=== PATIENT | male | born 1960 | race Caucasian/White ===

== ENCOUNTER 2019-03-26 16:14 | Emergency (ER) | payer OTHER ==
[~2019-03-26] VITALS: Wt 54.9 kg
[2019-03-26] MEDS ORDERED: LORAZEPAM 2 MG INJ IV STA (22:04)
[2019-03-26] MEDS ORDERED: SOD CHLORIDE 0.9% 1,000 ML IV STA (22:04)
[2019-03-27 00:23] VITALS: BP 116/68; PULSE 85; RESP 16
--- NOTE | 2019-03-27 00:28 | ERD ---
ER Documentation Chief Complaint Chief Complaint ETOH X7 DAYS, DIZZY, N/V HPI 59-year-old male with a history of depression brought in by his friend due to alcohol intoxication. Patient states that he has been drinking alcohol nonstop for the past several weeks. Prior to this, he has no history of alcoholism. 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 He is complaining of depression and states he is drinking because of that. However he denies any suicidal thoughts/ideations. Currently he has no physical complaints. His friend is concerned that he is dehydrated and malnourished as he has not been eating much. ROS All systems reviewed and are negative except as per history of present illness. PMhx/Soc History of Surgery: Yes (lung sx,head sx, heart sx) Anesthesia Reaction: No Hx Neurological Disorder: No Hx Respiratory Disorders: No Hx Cardiac Disorders: No Hx Psychiatric Problems: Yes (ETOH abuse,substance abuse) Hx Miscellaneous Medical Probl: No Hx Alcohol Use: Yes (daily,last used 03/25/2019) Hx Substance Use: Yes (cocaine & heroine quit 2003) Hx Tobacco Use: Yes (daily) Smoking Status: Current every day smoker FmHx Family History: No diabetes Physical Exam Vitals Vital Signs Date Temp Pulse Resp B/P (MAP) Pulse Ox O2 O2 Flow FiO2 Time Delivery Rate 03/26/19 94 16 114/87 93 Room Air 23:30 (96) 03/26/19 96 16 108/82 94 Room Air 23:00 (91) 03/26/19 97 16 114/85 97 Room Air 22:33 (95) 03/26/19 98.9 115 20 144/81 96 17:21 (102) Physical Exam Const: No acute distress, thin body habitus Head: Atraumatic Eyes: Normal Conjunctiva, PERRLA, EOMI ENT: Normal External Ears, Nose and Mouth.dry mucous membranes. Neck: Full range of motion. No meningismus. Resp: Clear to auscultation bilaterally Cardio: Regular rate and rhythm, no murmurs Abd: Soft, non tender, non distended. Normal bowel sounds Skin: No petechiae or rashes Back: No midline or flank tenderness Ext: No cyanosis, or edema Neur: Awake and alert, Oriented x3, cranial nerves intact, strength and sensations intact in all 4 extremities Psych: Depressed mood and normal affect. No SI or HI. No hallucinations. No tremors. Result Diagram: 03/26/19222503/26/192225 Results 24 hrs Laboratory Tests Test 03/26/19 22:26 White Blood Count 13.4 10^3/ul Red Blood Count 4.26 10^6/ul Hemoglobin 13.7 g/dl Hematocrit 38.7 % Mean Corpuscular Volume 90.8 fl Mean Corpuscular Hemoglobin 32.2 pg Mean Corpuscular Hemoglobin Concent 35.4 g/dl Red Cell Distribution Width 13.1 % Platelet Count 234 10^3/UL Mean Platelet Volume 8.6 fl Immature Granulocytes % 0.400 % Neutrophils % 79.7 % Lymphocytes % 10.1 % Monocytes % 9.3 % Eosinophils % 0.1 % Basophils % 0.4 % Nucleated Red Blood Cells % 0.0 /100WBC Immature Granulocytes # 0.060 10^3/ul Neutrophils # 10.7 10^3/ul Lymphocytes # 1.4 10^3/ul Monocytes # 1.2 10^3/ul Eosinophils # 0.0 10^3/ul Basophils # 0.1 10^3/ul Nucleated Red Blood Cells # 0.0 10^3/ul Sodium Level 139 mmol/L Potassium Level 4.3 mmol/L Chloride Level 101 mmol/L Carbon Dioxide Level 25 mmol/L Anion Gap 13 Blood Urea Nitrogen 5 mg/dl Creatinine 1.06 mg/dl Est Glomerular Filtrat Rate mL/min > 60 mL/min Glucose Level 83 mg/dl Calcium Level 8.8 mg/dl Total Bilirubin 0.4 mg/dl Direct Bilirubin 0.00 mg/dl Indirect Bilirubin 0.4 mg/dl Aspartate Amino Transf (AST/SGOT) 74 IU/L Alanine Aminotransferase (ALT/SGPT) 48 IU/L Alkaline Phosphatase 60 IU/L Total Protein 7.8 g/dl Albumin 4.3 g/dl Globulin 3.50 g/dl Albumin/Globulin Ratio 1.22 Current Medications Medications Dose Sig/[place] Start Time Status Last (Trade) Ordered Route PRN Stop Time Admin Dose Reason Admin Sodium 1,000 ml @ Q1H STAT 03/26/19 DC 03/26/19 Chloride 1,000 mls/hr IV 22:04 03/26/19 22:31 23:03 Lorazepam 1 mg ONCE STAT 03/26/19 DC 03/26/19 (Ativan) IV 22:04 03/26/19 22:31 22:05 Procedures/MDM EMERGENT LABS AND DIAGNOSTIC STUDIES: Lab Results above were reviewed and interpreted by me. CBC: Mild leukocytosis, doubt infection CMP: Slight elevation of AST. No evidence of clinically significant electrolyte abnormality, acidosis, renal failure, hypoglycemia, liver disease, or biliary obstruction Initial Nursing notes reviewed. Previous Medical Records requested via the Electronic Health Record. EMERGENCY DEPARTMENT COURSE / MEDICAL DECISION MAKING: Patient is presenting with alcohol abuse problem. He has no signs of withdrawal at this time. He does want to quit drinking alcohol. he did seem slightly dehydrated on exam, so IV fluids were given and basic labs were done. Labs did not show any significant abnormalities. He was treated with Ativan here as he has not had alcohol for several hours and I was concerned about him withdrawing. I have offered the patient resources for outpatient detox, however he states that he can stop himself and does not want these resources. However he did agree to receiving resources for outpatient mental health. I feel the patient is stable for discharge with no apparent medical emergency at this time. Return precautions were discussed with him and his friend at bedside. Patient's blood pressure was elevated (>120/80) but appears stable without evidence of hypertensive emergency or urgency. The patient was counseled about the risks of hypertension and urged to pursue outpatient monitoring and therapy within a week with their primary care physician. Departure Diagnosis: Primary Impression: Alcohol abuse, daily use Additional Impression: Depressed Depression Type: unspecified Qualified Codes: F32.9 - Major depressive disorder, single episode, unspecified Condition: Stable Patient Instructions: Alcoholism: Getting Help, Depression Referrals: COMM[facility]ITY CLINICS YOU HAVE RECEIVED A MEDICAL SCREENING EXAM AND THE RESULTS INDICATE THAT YOU DO NOT HAVE A CONDITION THAT REQUIRES URGENT TREATMENT IN THE EMERGENCY DEPARTMENT. FURTHER EVALUATION AND TREATMENT OF YOUR CONDITION CAN WAIT UNTIL YOU ARE SEEN IN YOUR DOCTORS OFFICE WITHIN THE NEXT 1-2 DAYS. IT IS YOUR RESPONSIBILITY TO MAKE AN APPOINTMENT FOR FOLOW-UP CARE. IF YOU HAVE A PRIMARY DOCTOR --you should call your primary doctor and schedule an appointment IF YOU DO NOT HAVE A PRIMARY DOCTOR YOU CAN CALL OUR PHYSICIAN REFERRAL HOTLINE AT IF YOU CAN NOT AFFORD TO SEE A PHYSICIAN YOU CAN CHOSE FROM THE FOLLOWING COM [facility] [address] [facility] [address] [facility] [address] [facility] [address] [facility] [address] [facility] [facility] [address] Additional Instructions: Follow-up with your primary care doctor as soon as possible. If you have any worsening symptoms, return to the ER. You have been provided with a list of mental health facilities that can help with your depression. PIEDAD CHAVES MD Mar 27, 2019 00:28
== END 2019-03-27 00:26 | disposition home or self-care (01) ==
LOC: E/R 16:14
DX: F10.10 Alcohol abuse, uncomplicated (principal); F17.210 Nicotine dependence, cigarettes, uncomplicated; F32.9 Major depressive disorder, single episode, unspecified; R40.2142 Coma scale, eyes open, spontaneous, at arrival to emergency department; R40.2362 Coma scale, best motor response, obeys commands, at arrival to emergency department; R40.2252 Coma scale, best verbal response, oriented, at arrival to emergency department
CPT/HCPCS: 36415; 80053; 85025; 96374; J2060; J7030; Z7502

== ENCOUNTER 2019-03-28 22:04 | Inpatient (IN) | payer OTHER ==
[~2019-03-28] VITALS: Ht 177.8 cm; Wt 55.8 kg
--- NOTE | 2019-03-29 01:22 | ERD ---
ER Documentation Chief Complaint Chief Complaint BIB RA for ETOH on sidewalk HPI This is a 59-year-old male with a past medical history of depression, anxiety, chronic alcohol abuse, distant illicit drug abuse is now presenting for reported depression and a desire for help. The patient reports difficulty sleeping. He has a poor appetite and never feels hungry. He endorses low interest in things, but he does report that he is able to focus and concentrate when needed. He does not endorse any active guilty feelings. He does not endorse any psychomotor agitation or depression. He does not endorse auditory or visual hallucinations. He does not endorse suicidal or homicidal ideations. The patient is homeless. The patient reports that due to his depression, he tends to drink. The patient admits to alcohol intoxication this evening. The patient denies feeling sick recently. The patient denies fever or chills. The patient has had no headache or vision changes. The patient does not endorse neck or back pain. The patient denies lightheadedness or dizziness. The patient has had no chest pain or trouble breathing. The patient denies nausea or vomiting. The patient denies abdominal pain. The patient denies changes to bowel movements or urination. The patient has had no focal deficits. The patient has had no weakness or numbness or tingling to the face or extremities. ROS All systems reviewed and are negative except as per history of present illness. Allergies Allergies: Coded Allergies: No Known Drug Allergies (Verified Allergy, Unknown, 03/27/19) PMhx/Soc History of Surgery: Yes (lung sx,head sx, heart sx) Anesthesia Reaction: No Hx Neurological Disorder: No Hx Respiratory Disorders: No Hx Cardiac Disorders: No Hx Psychiatric Problems: Yes (Depression, anxiety) Hx Miscellaneous Medical Probl: No Hx Alcohol Use: Yes (daily,last used 03/25/2019) Hx Substance Use: Yes (cocaine & heroine quit 2003) Hx Tobacco Use: Yes (daily) Smoking Status: Current every day smoker FmHx Family History: No diabetes Physical Exam Vitals Vital Signs Date Temp Pulse Resp B/P (MAP) Pulse Ox O2 O2 Flow FiO2 Time Delivery Rate 03/28/19 101 30 133/93 95 Room Air 23:13 (106) 03/28/19 97.9 114 18 119/78 96 22:11 (92) Physical Exam Const: No acute distress Head: Atraumatic Eyes: Normal Conjunctiva ENT: Normal External Ears, Nose. Dry mucous membranes. Neck: Full range of motion. No meningismus. Resp: Clear to auscultation bilaterally Cardio: Regular rhythm, tachycardia, no murmurs Abd: Soft, non tender, non distended. Normal bowel sounds Skin: No petechiae or rashes Back: No midline or flank tenderness Ext: No cyanosis, or edema Neur: Awake and alert Psych: Depressed affect. No SI or HI. No AH or VH. Result Diagram: 03/28/194 03/28/194 Results 24 hrs Laboratory Tests Test 03/28/19 23:34 White Blood Count 15.0 10^3/ul Red Blood Count 4.05 10^6/ul Hemoglobin 13.0 g/dl Hematocrit 36.9 % Mean Corpuscular Volume 91.1 fl Mean Corpuscular Hemoglobin 32.1 pg Mean Corpuscular Hemoglobin Concent 35.2 g/dl Red Cell Distribution Width 12.8 % Platelet Count 197 10^3/UL Mean Platelet Volume 8.6 fl Immature Granulocytes % 0.500 % Neutrophils % 86.2 % Lymphocytes % 6.7 % Monocytes % 5.5 % Eosinophils % 0.1 % Basophils % 1.0 % Nucleated Red Blood Cells % 0.0 /100WBC Immature Granulocytes # 0.070 10^3/ul Neutrophils # 12.9 10^3/ul Lymphocytes # 1.0 10^3/ul Monocytes # 0.8 10^3/ul Eosinophils # 0.0 10^3/ul Basophils # 0.2 10^3/ul Nucleated Red Blood Cells # 0.0 10^3/ul Sodium Level 139 mmol/L Potassium Level 3.6 mmol/L Chloride Level 103 mmol/L Carbon Dioxide Level 22 mmol/L Anion Gap 14 Blood Urea Nitrogen 7 mg/dl Creatinine 0.93 mg/dl Est Glomerular Filtrat Rate mL/min > 60 mL/min Glucose Level 109 mg/dl Calcium Level 8.3 mg/dl Total Bilirubin 0.9 mg/dl Direct Bilirubin 0.00 mg/dl Indirect Bilirubin 0.9 mg/dl Aspartate Amino Transf (AST/SGOT) 205 IU/L Alanine Aminotransferase (ALT/SGPT) 71 IU/L Alkaline Phosphatase 58 IU/L Total Protein 7.6 g/dl Albumin 4.4 g/dl Globulin 3.20 g/dl Albumin/Globulin Ratio 1.37 Salicylates Level < 1.0 mg/dl Acetaminophen Level < 10.0 ug/ml Ethyl Alcohol Level 400.0 mg/dl Procedures/MDM MDM The patient's presentation warrants further investigation. Previous medical records, if available, were reviewed. LABS The patient's laboratory testing was obtained and reviewed. No emergent treatment was required unless described below. CBC: Leukocytosis, which I suspect to be reactive. Normocytic anemia, not emergent. Normal platelet count. Chemistry: No E/o severe acidosis or alkalosis or renal failure or diabetic ketoacidosis. Transaminitis in a pattern consistent with alcohol abuse. Tox: E/o alcohol abuse. No E/o salicylate or acetaminophen use. TREATMENT/DISPOSITION The patient's workup included a medical screening examination, laboratory analysis, and diagnostic imaging such as EKG, chest x-ray or CT brain as indicated. The patient's laboratory analysis, diagnostic imaging do not suggest an acute organic pathology. At this time I believe the patient's presentation is consistent with underlying psychiatric illness and likely exacerbation of this illness and/or psychosis. I have a much lower clinical concern for delirium or acute organic pathology such as toxicologic, metabolic, ischemic, intracranial hemorrhage, infectious process. However, we must rule this out prior to relying a diagnosis of underlying psychiatric illness. The patient is medically cleared for psychiatric evaluation. I kept the patient and/or family informed of laboratory and diagnostic imaging results throughout the emergency room course. The patient did not require any physical or chemical restraint while under my care. Psychiatric consultation: Telemetry medicine psychiatry has been consulted on to evaluate the patient for possible acute psychiatric illness that would require inpatient hospitalization. The patient is currently pending this evaluation. We spoke to the psychiatrist who would like to assess the patient once he is clinically sober. The patient's alcohol level is currently 400. The patient will be signed out to the oncoming physician at 6 AM on March 29, 2019. OBSERVATION NOTE Time: 4 hours Family Hx: No Diabetes Evaluation: Multiple exams showed improving symptoms and no evidence of worsening psychosis Disclaimer: Inadvertent spelling and grammatical errors are likely due to EHR/dictation software use and do not reflect on the overall quality of patient care. Note that the electronic time recorded on this note does not necessarily reflect the actual time of the patient encounter. Departure Diagnosis: Primary Impression: Depression Depression Type: unspecified Qualified Codes: F32.9 - Major depressive disorder, single episode, unspecified Additional Impressions: Alcohol intoxication Complication of substance-induced condition: uncomplicated Qualified Codes: F10.920 - Alcohol use, unspecified with intoxication, uncomplicated Leukocytosis Leukocytosis type: unspecified Qualified Codes: D72.829 - Elevated white blood cell count, unspecified Normocytic anemia Transaminitis Condition: ISIDRO Barrera MD Mar 29, 2019 01:22
--- NOTE | 2019-03-29 02:13 | PSY ---
Date/Time of Note Date/Time of Note DATE: 03/29/19 TIME: 02:10 Psychiatric Subjective Eval Subjective Evaluation Patient location: emergency Chief Complaint: BIB RA for ETOH on sidewalk History of present illness Chart reviewed. Patient presented for alcohol intoxication and also noted he was depressed. No suicidal or violent thoughts were reported. Alcohol level noted to be markedly elevated. Psychiatry consultation should not be requested until alcohol has completely metabolized. Consult can be re-initiated at that time if condition warrants. Medical history Problems Medical Problems: (1) Alcohol abuse, daily use Status: Acute (2) Alcohol abuse, daily use Status: Acute (3) Alcohol intoxication Status: Acute (4) Depressed Status: Acute (5) Depressed Status: Acute (6) Depression Status: Acute (7) Leukocytosis Status: Acute (8) Normocytic anemia Status: Acute (9) Transaminitis Status: Acute Allergies: Coded Allergies: No Known Drug Allergies (Verified Allergy, Unknown, 03/27/19) Social History Marital status: single Psychiatric Objective Eval Mental Status Examination: Laboratory Results Laboratory Tests Test 03/28/19 23:34 White Blood Count 15.0 10^3/ul Red Blood Count 4.05 10^6/ul Hemoglobin 13.0 g/dl Hematocrit 36.9 % Mean Corpuscular Volume 91.1 fl Mean Corpuscular Hemoglobin 32.1 pg Mean Corpuscular Hemoglobin Concent 35.2 g/dl Red Cell Distribution Width 12.8 % Platelet Count 197 10^3/UL Mean Platelet Volume 8.6 fl Immature Granulocytes % 0.500 % Neutrophils % 86.2 % Lymphocytes % 6.7 % Monocytes % 5.5 % Eosinophils % 0.1 % Basophils % 1.0 % Nucleated Red Blood Cells % 0.0 /100WBC Immature Granulocytes # 0.070 10^3/ul Neutrophils # 12.9 10^3/ul Lymphocytes # 1.0 10^3/ul Monocytes # 0.8 10^3/ul Eosinophils # 0.0 10^3/ul Basophils # 0.2 10^3/ul Nucleated Red Blood Cells # 0.0 10^3/ul Sodium Level 139 mmol/L Potassium Level 3.6 mmol/L Chloride Level 103 mmol/L Carbon Dioxide Level 22 mmol/L Anion Gap 14 Blood Urea Nitrogen 7 mg/dl Creatinine 0.93 mg/dl Est Glomerular Filtrat Rate mL/min > 60 mL/min Glucose Level 109 mg/dl Calcium Level 8.3 mg/dl Total Bilirubin 0.9 mg/dl Direct Bilirubin 0.00 mg/dl Indirect Bilirubin 0.9 mg/dl Aspartate Amino Transf (AST/SGOT) 205 IU/L Alanine Aminotransferase (ALT/SGPT) 71 IU/L Alkaline Phosphatase 58 IU/L Total Protein 7.6 g/dl Albumin 4.4 g/dl Globulin 3.20 g/dl Albumin/Globulin Ratio 1.37 Salicylates Level < 1.0 mg/dl Acetaminophen Level < 10.0 ug/ml Ethyl Alcohol Level 400.0 mg/dl Assessment and Plan Assessment/Diagnosis Diagnosis Alcohol Intoxication Recommendation/Plan Discharge Disposition: Other (Other) Legal Status: Voluntary Other Alcohol needs to be completely metabolized. Consult can be requested again if condition warrants (eg indication of possible dangerousness to self or others). TOBI WOLFF MD Mar 29, 2019 02:13
[2019-03-29] MEDS ORDERED: CHLORDIAZEPOXIDE 25 MG CAP PO ONE (12:00)
[2019-03-29] MEDS ORDERED: DIAZEPAM 5 MG/ML SYG IV ONE ×2 (15:00→18:00)
[2019-03-29] MEDS ORDERED: FOLIC ACID 1 MG TAB PO ONE (15:00)
[2019-03-29] MEDS ORDERED: DEXTROSE 5%-0.45% NACL 500 ML BAG IV ONE (15:00)
[2019-03-29] MEDS ORDERED: THIAMINE 100 MG TAB PO ONE (15:00)
[2019-03-29] MEDS ORDERED: LACTATED RINGER'S 1,000 ML IV ONE (16:00)
[2019-03-29] MEDS ORDERED: MULTIVITAMINS 10 ML, THIAMINE 100 MG, FOLIC ACID 1 MG, MAGNESIUM SULFATE 2 GM in SOD CH... IV ONE (18:00)
[2019-03-29] MEDS ORDERED: ONDANSETRON 4 MG INJ IV PRN (18:30)
[2019-03-29] MEDS ORDERED: ACETAMINOPHEN 325 MG TAB PO PRN (18:30)
--- NOTE | 2019-03-29 23:51 | HP ---
Date/Time of Note Date/Time of Note DATE: 03/29/19 TIME: 23:51 Assessment/Plan VTE Prophylaxis Pharmacological prophylaxis: heparin Lines/Catheters IV Catheter Type (from Nrs): Saline Lock Assessment/Plan Assessment/Plan 1. Alcohol intoxication/withdrawal -IV fluid alternating with banana bag -Librium. As needed Ativan -Counseled about abstinence from alcohol -Start diet 2. SIRS vs sepsis from sacral ulcer and ulceration on the dorsum of feet -Empiric antibiotic -Wound care consult 3. Depression -Patient was seen in the ER by tele-psychiatry for depression, however currently is not endorsing any depressive symptoms and also denying suicidal or homicidal ideation -Treat alcohol intoxication/withdrawal for now Result Diagram: 03/28/19 2334 03/28/19 2334 Results 24hrs Laboratory Tests Test 03/29/19 05:56 03/29/19 10:51 Ethyl Alcohol Level 239.0 H 143.0 H HPI/ROS Admit Date/Time Admit Date/Time Hx of Present Illness This is a 59-year-old male with a history of alcohol abuse, and reported heart and lung surgery who presented to ER with alcohol intoxication and asking for help. His last drink was yesterday and prior to that was 3 weeks ago. He said he does not drink all the time, but he does, he drinks excessively. He has some lesion on his forehead and he does not know how he got that. He also reported that he was walking barefoot 4 days ago and as a result he said he burned his feet because the street that he was walking on was too hot. When he presented to the ER, he is found to have significantly elevated blood alcohol level. WBC 15,000. Patient was evaluated by telemetry psychiatry for feeling depressed. PMH/Family/Social Past Medical History Past Surgical Hx: other Family History Significant Family History: no pertinent family hx Social History Alcohol Use: none Smoking Status: Never smoker Drug Use: none Exam Constitutional: other (No acute distress) Head: normocephalic, atraumatic Eyes: EOMI, PERRL Respiratory: clear to auscultation, normal air movement Cardiovascular: regular rate and rhythm Gastrointestinal: soft Extremities: normal pulses Medications Current Medications Ondansetron HCl (Zofran Inj) 4 mg ER BRIDGE PRN IV NAUSEA/VOMITING; Start 03/29/19 at 18:30; Stop 03/30/19 at 18:29 Acetaminophen (Tylenol Tab) 650 mg ER BRIDGE PRN PO .MILD PAIN 1-3 OR TEMP; Start 03/29/19 at 18:30; Stop 03/30/19 at 18:29 Coded Allergies: No Known Drug Allergies (Verified Allergy, Unknown, 03/27/19) Social History Smoking Status: Current every day smoker Exam/Review of Systems Vital Signs Vitals Vital Signs Date Temp Pulse Resp B/P (MAP) Pulse Ox O2 O2 Flow FiO2 Time Delivery Rate 03/29/19 84 16 125/77 97 Room Air 19:30 (93) 03/28/19 97.9 22:11 NADRESSA BALL MD Mar 29, 2019 23:51
[2019-03-30] MEDS: SOD CHLORIDE 0.9% 1,000 ML IV SCH ×3 (00:07→21:49)
[2019-03-30] MEDS ORDERED: ACETAMINOPHEN 325 MG TAB PO PRN (00:30)
[2019-03-30] MEDS ORDERED: NACL 0.9% 3 ML SYG IV SCH (00:30)
[2019-03-30] MEDS ORDERED: ALBUTEROL/IPRATROPIUM (NEB) 3 ML AMP HHN PRN (00:30)
[2019-03-30] MEDS ORDERED: ONDANSETRON 4 MG INJ IV PRN (00:30)
[2019-03-30 05:20] VITALS: Ht 177.8 cm; Wt 55.8 kg
[2019-03-30 06:59] VITALS: BP 141/72; PULSE 67; RESP 20
[2019-03-30] MEDS ORDERED: CHLORDIAZEPOXIDE 25 MG CAP PO SCH (08:30)
[2019-03-30] MEDS: FAMOTIDINE 20 MG INJ IV SCH ×2 (09:00→21:01)
[2019-03-30] MEDS ORDERED: MULTIVITAMINS 10 ML, THIAMINE 100 MG, FOLIC ACID 1 MG in SOD CHLORIDE 0.9% 1,000 ML IVPB SCH (09:00)
[2019-03-30] MEDS ORDERED: TRIMETHOPRIM/SULFAMETHOX (DS) TAB PO SCH (09:30)
[2019-03-30 11:13] VITALS: BP 132/79; PULSE 69; RESP 20
[2019-03-30] MEDS ORDERED: LORAZEPAM 2 MG INJ IV PRN (12:30)
[2019-03-30] MEDS ORDERED: LIDOCAINE 1% (MPF) 5 ML VIAL SC ONE (13:00)
--- NOTE | 2019-03-30 13:11 | PN ---
Date/Time of Note Date/Time of Note DATE: 03/30/19 TIME: 13:11 Objective Vitals Vital Signs Date Temp Pulse Resp B/P (MAP) Pulse Ox O2 O2 Flow FiO2 Time Delivery Rate 03/30/19 98.3 69 20 132/79 100 Room Air 11:13 (96) Results Result Diagram: 03/28/19 2334 03/28/19 2334 Medications Medications Current Medications Sodium Chloride 1,000 ml @ 100 mls/hr Q10H IV Last administered on 03/30/19at 00:07; Admin Dose 100 MLS/HR; Start 03/30/19 at 00:07 IV Flush (NS 3 ml) 3 ml PER PROTOCOL IV ; Start 03/30/19 at 00:30 Ondansetron HCl (Zofran Inj) 4 mg Q6H PRN IV NAUSEA/VOMITING; Start 03/30/19 at 00:30 Acetaminophen (Tylenol Tab) 650 mg Q6H PRN PO .PAIN 1-3 OR TEMP; Start 03/30/19 at 00:30 Famotidine (Pepcid Iv) 20 mg Q12 IV ; Start 03/30/19 at 09:00 Albuterol/ Ipratropium (Duoneb) 3 ml Q2H RESP THERAPY PRN HHN SHORTNESS OF BREATH; Start 03/30/19 at 00:30 Multivitamins 10 ml/Thiamine HCl 100 mg/Folic Acid 1 mg/Sodium Chloride 1,011.2 ml @ 125 mls/ hr DAILY@09 IVPB ; Start 03/31/19 at 09:00 Lorazepam (Ativan) 2 mg Q10MIN PRN IV seizures; Start 03/30/19 at 12:30 Lorazepam (Ativan) 1 mg Q6H PRN IV agitation/anxiety; Start 03/30/19 at 12:30 Chlordiazepoxide (Librium) 50 mg TID PO ; Start 03/30/19 at 13:00 Cefepime HCl 50 ml @ 100 mls/hr Q12 IVPB ; Start 03/30/19 at 13:15 VTE Prophylaxis Risk score (from Ns)>0 risk: 3 SCD applied (from Ns): Yes Lines/Catheters IV Catheter Type: Fernandez in Place: No Assessment/Plan Hospital Course Subjective Patient doing well, still feeling very mild anxiety however states he feels much better than when in the ER Objective Physical exam General: Patient is laying in bed and answers questions appropriately Mentation: Patient is alert and oriented 4, Head: Normocephalic atraumatic Eyes: EOMI, pupils reactive to light Neck: Supple, nontender, midline Respiratory: Clear to auscultation bilaterally Cardiovascular: regular rate, no obvious murmurs Gastrointestinal: non-tender to palpation, bowel sounds heard. Neurological: Moves all extremities spontaneously Skin: No new skin lesions Assessment and plan Acute alcohol intoxication and withdrawal -IV fluids with banana bag -Patient feeling much better than yesterday -Librium, taper down as tolerated -As needed Ativan -Counseled about abstinence from alcohol -Regular diet -We will get PICC line as patient does not have good IV access, midline unable to be placed, patient at risk of withdrawal and will need IV access for IV Ativan as well as IV antibiotic. Patient does have a history of heroin use in the remote past 20 years ago so cannot be discharged with PICC line under any circumstance Sepsis -Possible secondary to ulcerations of feet -IV antibiotic -Blood cultures Bilateral foot ulcers -Patient states that he may have burned his feet without shoes while walking in the sun -IV antibiotic -Wound care consultation pending Depression -Seen by tele-psych and ER, no suicidal homicidal ideation per record -Continue treating for alcohol intoxication Disposition -Continue IV antibiotic, continue inpatient stay for alcohol withdrawal. NIESHA SHERWOOD Mar 30, 2019 13:11
[2019-03-30] MEDS ORDERED: CEFEPIME 2GM/50 ML (PMX) 50 ML IVPB SCH (13:15)
[2019-03-30] MEDS: CHLORDIAZEPOXIDE 25 MG CAP PO SCH ×2 (14:36→21:00)
[2019-03-30 15:16] VITALS: BP 124/75; PULSE 68; RESP 20
[2019-03-30] MEDS: CEPHALEXIN 500 MG CAP PO SCH (18:44)
[2019-03-30 19:29] VITALS: BP 120/73; PULSE 80; RESP 18
[2019-03-30] MEDS: DOXYCYCLINE 100 MG TAB PO SCH (21:00)
[2019-03-31] VITALS (7 sets, daily range): BP systolic 118–147; BP diastolic 69–87; PULSE 65–80; RESP 16–20
[2019-03-31] MEDS: CEPHALEXIN 500 MG CAP PO SCH ×4 (05:10→17:41)
[2019-03-31] MEDS: SOD CHLORIDE 0.9% 1,000 ML IV SCH ×2 (05:12→16:07)
[2019-03-31] MEDS: FAMOTIDINE 20 MG INJ IV SCH ×2 (08:32→20:21)
[2019-03-31] MEDS: CHLORDIAZEPOXIDE 25 MG CAP PO SCH ×3 (08:32→20:02)
[2019-03-31] MEDS: DOXYCYCLINE 100 MG TAB PO SCH ×2 (08:32→20:02)
[2019-03-31] MEDS: MULTIVITAMINS 10 ML, THIAMINE 100 MG, FOLIC ACID 1 MG in SOD CHLORIDE 0.9% 1,000 ML IVPB SCH (08:32)
[2019-03-31] MEDS ORDERED: MAGNESIUM OXIDE 400 MG TAB PO ONE (09:00)
[2019-03-31] MEDS ORDERED: PROPOFOL 40 ML ONE (12:33)
--- NOTE | 2019-03-31 16:58 | PN ---
Date/Time of Note Date/Time of Note DATE: 03/31/19 TIME: 16:51 Assessment/Plan VTE Prophylaxis Risk score (from Ns)>0 risk: 3 SCD applied (from Ns): Yes Pharmacological prophylaxis: other Lines/Catheters IV Catheter Type (from Nrsg): Saline Lock Urinary Cath still in place: No Assessment/Plan Assessment/Plan 1. Acute alcohol intoxication and withdrawal - Patient states hes feeling okay and denies any withdrawal sx - continue librium taper and IVF - Counseled about abstinence from alcohol 2. Sepsis - Possible secondary to ulcerations of feet - IV antibiotic - Blood cultures - WBC normalized and remains afebrile 3. Bilateral foot ulcers - awaiting wound care consultation - Patient states that he may have burned his feet without shoes while walking in the sun - IV antibiotic 4. Depression - Seen by tele-psych and ER, no suicidal homicidal ideation per record 5. Disposition - continue Librium taper and awaiting wound care consultation for LE ulcers Result Diagram: 03/31/19 0639 03/31/19 0639 Results 24hrs Laboratory Tests Test 03/31/19 06:39 White Blood Count 6.9 # Red Blood Count 3.62 L Hemoglobin 11.5 L Hematocrit 33.6 L Mean Corpuscular Volume 92.8 Mean Corpuscular Hemoglobin 31.8 Mean Corpuscular Hemoglobin Concent 34.2 Red Cell Distribution Width 12.5 Platelet Count 136 #L Mean Platelet Volume 10.2 Immature Granulocytes % 0.600 H Neutrophils % 66.3 Lymphocytes % 15.3 Monocytes % 12.2 H Eosinophils % 5.2 Basophils % 0.4 Nucleated Red Blood Cells % 0.0 Immature Granulocytes # 0.040 H Neutrophils # 4.6 Lymphocytes # 1.1 Monocytes # 0.9 Eosinophils # 0.4 Basophils # 0.0 Nucleated Red Blood Cells # 0.0 Sodium Level 134 L Potassium Level 4.3 Chloride Level 101 Carbon Dioxide Level 25 Anion Gap 8 Blood Urea Nitrogen 16 Creatinine 0.74 Est Glomerular Filtrat Rate mL/min > 60 Glucose Level 95 Calcium Level 8.4 Magnesium Level 1.6 L Total Bilirubin 0.9 Direct Bilirubin 0.00 Indirect Bilirubin 0.9 Aspartate Amino Transf (AST/SGOT) 96 H Alanine Aminotransferase (ALT/SGPT) 62 Alkaline Phosphatase 68 Total Protein 6.1 Albumin 3.2 L Globulin 2.90 Albumin/Globulin Ratio 1.10 Subjective 24 Hr Interval Summary Free Text/Dictation Patient doing well and states feeling less shaky. Pain in LE stable as long as he doesn't move. No acute overnight events. Exam/Review of Systems Exam Vitals Vital Signs Date Temp Pulse Resp B/P (MAP) Pulse Ox O2 O2 Flow FiO2 Time Delivery Rate 03/31/19 98.0 70 18 120/87 98 16:13 (98) 03/31/19 Room Air 04:27 Intake and Output 03/30/19 03/30/19 03/31/19 1515:00 23:00 07:00 IntakeIntake Total 600 ml 650 ml OutputOutput Total 200 ml 200 ml 1150 ml BalanceBalance 400 ml -200 ml -500 ml Exam General: Patient is laying in bed and answers questions appropriately Mentation: Patient is alert and oriented 4, Neck: Supple Respiratory: Clear to auscultation bilaterally. no wheezing or rhonchi Cardiovascular: regular rate and rhythm, no obvious murmurs Gastrointestinal: soft, non-tender to palpation, bowel sounds heard. Ext: moving all extremities. no edema, cyanosis, or clubbing Skin: dressing on LE b/l clean, dry Results Results 24hrs Laboratory Tests Test 03/31/19 06:39 White Blood Count 6.9 # Red Blood Count 3.62 L Hemoglobin 11.5 L Hematocrit 33.6 L Mean Corpuscular Volume 92.8 Mean Corpuscular Hemoglobin 31.8 Mean Corpuscular Hemoglobin Concent 34.2 Red Cell Distribution Width 12.5 Platelet Count 136 #L Mean Platelet Volume 10.2 Immature Granulocytes % 0.600 H Neutrophils % 66.3 Lymphocytes % 15.3 Monocytes % 12.2 H Eosinophils % 5.2 Basophils % 0.4 Nucleated Red Blood Cells % 0.0 Immature Granulocytes # 0.040 H Neutrophils # 4.6 Lymphocytes # 1.1 Monocytes # 0.9 Eosinophils # 0.4 Basophils # 0.0 Nucleated Red Blood Cells # 0.0 Sodium Level 134 L Potassium Level 4.3 Chloride Level 101 Carbon Dioxide Level 25 Anion Gap 8 Blood Urea Nitrogen 16 Creatinine 0.74 Est Glomerular Filtrat Rate mL/min > 60 Glucose Level 95 Calcium Level 8.4 Magnesium Level 1.6 L Total Bilirubin 0.9 Direct Bilirubin 0.00 Indirect Bilirubin 0.9 Aspartate Amino Transf (AST/SGOT) 96 H Alanine Aminotransferase (ALT/SGPT) 62 Alkaline Phosphatase 68 Total Protein 6.1 Albumin 3.2 L Globulin 2.90 Albumin/Globulin Ratio 1.10 Medications Medication Current Medications Sodium Chloride 1,000 ml @ 100 mls/hr Q10H IV Last administered on 03/31/19 05:12; Admin Dose 100 MLS/HR; Start 03/30/19 at 00:07 IV Flush (NS 3 ml) 3 ml PER PROTOCOL IV ; Start 03/30/19 at 00:30 Ondansetron HCl (Zofran Inj) 4 mg Q6H PRN IV NAUSEA/VOMITING; Start 03/30/19 at 00:30 Acetaminophen (Tylenol Tab) 650 mg Q6H PRN PO .PAIN 1-3 OR TEMP; Start 03/30/19 at 00:30 Famotidine (Pepcid Iv) 20 mg Q12 IV Last administered on 03/31/19 08:32; Admin Dose 20 MG; Start 03/30/19 at 09:00 Albuterol/ Ipratropium (Duoneb) 3 ml Q2H RESP THERAPY PRN HHN SHORTNESS OF BREATH; Start 03/30/19 at 00:30 Multivitamins 10 ml/Thiamine HCl 100 mg/Folic Acid 1 mg/Sodium Chloride 1,011.2 ml @ 125 mls/ hr DAILY@09 IVPB Last administered on 03/31/19 08:32; Admin Dose 125 MLS/HR; Start 03/31/19 at 09:00 Lorazepam (Ativan) 2 mg Q10MIN PRN IV seizures; Start 03/30/19 at 12:30 Lorazepam (Ativan) 1 mg Q6H PRN IV agitation/anxiety; Start 03/30/19 at 12:30 Chlordiazepoxide (Librium) 50 mg TID PO Last administered on 03/31/19 12:29; Admin Dose 50 MG; Start 03/30/19 at 13:00 Doxycycline Hyclate (Vibramycin) 100 mg BID PO Last administered on 03/31/19 08:32; Admin Dose 100 MG; Start 03/30/19 at 21:00 Cephalexin (Keflex) 500 mg Q6 PO Last administered on 03/31/19 12:29; Admin Dose 500 MG; Start 03/30/19 at 18:00 CLEO ORTIZ MD Mar 31, 2019 16:58
[2019-04-01] MEDS: SOD CHLORIDE 0.9% 1,000 ML IV SCH (01:10)
[2019-04-01] MEDS: CEPHALEXIN 500 MG CAP PO SCH ×5 (01:10→23:40)
[2019-04-01 07:23] VITALS: BP 133/77; PULSE 74; RESP 22
[2019-04-01] MEDS: DOXYCYCLINE 100 MG TAB PO SCH ×2 (08:03→20:26)
[2019-04-01] MEDS: MULTIVITAMINS 10 ML, THIAMINE 100 MG, FOLIC ACID 1 MG in SOD CHLORIDE 0.9% 1,000 ML IVPB SCH (08:03)
[2019-04-01] MEDS: CHLORDIAZEPOXIDE 25 MG CAP PO SCH ×2 (08:04→22:18)
[2019-04-01] MEDS: FAMOTIDINE 20 MG INJ IV SCH (08:04)
[2019-04-01] MEDS ORDERED: MAGNESIUM SULFATE 2 GM/50 ML 50 ML IVPB ONE (09:30)
--- NOTE | 2019-04-01 10:40 | PN ---
Date/Time of Note Date/Time of Note DATE: 04/01/19 TIME: 10:40 Assessment/Plan VTE Prophylaxis Risk score (from Ns)>0 risk: 4 SCD applied (from Ns): Yes Pharmacological prophylaxis: other Lines/Catheters IV Catheter Type (from Nrsg): Saline Lock Urinary Cath still in place: No Assessment/Plan Assessment/Plan 1. Acute alcohol intoxication and withdrawal - will continue taper Librium as tolerated - no DTs appreciated and Ativan PRN - Counseled about abstinence from alcohol 2. Sepsis - Possible secondary to ulcerations of feet - IV antibiotic - Blood cultures - WBC normalized and remains afebrile 3. Bilateral foot ulcers - awaiting wound care consultation - Patient states that he may have burned his feet without shoes while walking in the sun - IV antibiotic 4. Depression - Seen by tele-psych and ER, no suicidal homicidal ideation per record 5. Disposition - continue Librium taper and awaiting wound care consultation for LE ulcers Result Diagram: 04/01/19 0644 04/01/19 0644 Results 24hrs Laboratory Tests Test 04/01/19 06:44 White Blood Count 6.1 Red Blood Count 3.50 L Hemoglobin 11.3 L Hematocrit 32.6 L Mean Corpuscular Volume 93.1 Mean Corpuscular Hemoglobin 32.3 Mean Corpuscular Hemoglobin Concent 34.7 Red Cell Distribution Width 12.4 Platelet Count 151 Mean Platelet Volume 9.9 Immature Granulocytes % 1.200 H Neutrophils % 59.1 Lymphocytes % 20.2 Monocytes % 13.7 H Eosinophils % 5.1 Basophils % 0.7 Nucleated Red Blood Cells % 0.0 Immature Granulocytes # 0.070 H Neutrophils # 3.6 Lymphocytes # 1.2 Monocytes # 0.8 Eosinophils # 0.3 Basophils # 0.0 Nucleated Red Blood Cells # 0.0 Sodium Level 137 Potassium Level 3.7 Chloride Level 101 Carbon Dioxide Level 27 Anion Gap 9 Blood Urea Nitrogen 16 Creatinine 0.86 Est Glomerular Filtrat Rate mL/min > 60 Glucose Level 117 Calcium Level 9.1 Magnesium Level 1.4 L Total Bilirubin 0.6 Direct Bilirubin 0.00 Indirect Bilirubin 0.6 Aspartate Amino Transf (AST/SGOT) 80 H Alanine Aminotransferase (ALT/SGPT) 72 H Alkaline Phosphatase 65 Total Protein 6.6 Albumin 3.4 Globulin 3.20 Albumin/Globulin Ratio 1.06 Subjective 24 Hr Interval Summary Free Text/Dictation Patient noted to be shaky when attempted to stand up. States feels groggy today and discussed tapering Librium. No acute overnight events. Exam/Review of Systems Exam Vitals Vital Signs Date Temp Pulse Resp B/P (MAP) Pulse Ox O2 O2 Flow FiO2 Time Delivery Rate 04/01/19 97.9 74 22 133/77 96 Room Air 07:23 (95) 04/01/19 21 03:09 Intake and Output 03/31/19 03/31/19 04/01/19 1515:00 23:00 07:00 IntakeIntake Total 360 ml 300 ml OutputOutput Total 1000 ml 725 ml BalanceBalance -640 ml -425 ml Exam General: Patient is laying in bed and answers questions appropriately Mentation: Patient is alert and oriented 4, Neck: Supple Respiratory: Clear to auscultation bilaterally. no wheezing or rhonchi Cardiovascular: regular rate and rhythm, no obvious murmurs Gastrointestinal: soft, non-tender to palpation, bowel sounds heard. Ext: moving all extremities. no edema, cyanosis, or clubbing Skin: dressing on LE b/l clean, dry Results Results 24hrs Laboratory Tests Test 04/01/19 06:44 White Blood Count 6.1 Red Blood Count 3.50 L Hemoglobin 11.3 L Hematocrit 32.6 L Mean Corpuscular Volume 93.1 Mean Corpuscular Hemoglobin 32.3 Mean Corpuscular Hemoglobin Concent 34.7 Red Cell Distribution Width 12.4 Platelet Count 151 Mean Platelet Volume 9.9 Immature Granulocytes % 1.200 H Neutrophils % 59.1 Lymphocytes % 20.2 Monocytes % 13.7 H Eosinophils % 5.1 Basophils % 0.7 Nucleated Red Blood Cells % 0.0 Immature Granulocytes # 0.070 H Neutrophils # 3.6 Lymphocytes # 1.2 Monocytes # 0.8 Eosinophils # 0.3 Basophils # 0.0 Nucleated Red Blood Cells # 0.0 Sodium Level 137 Potassium Level 3.7 Chloride Level 101 Carbon Dioxide Level 27 Anion Gap 9 Blood Urea Nitrogen 16 Creatinine 0.86 Est Glomerular Filtrat Rate mL/min > 60 Glucose Level 117 Calcium Level 9.1 Magnesium Level 1.4 L Total Bilirubin 0.6 Direct Bilirubin 0.00 Indirect Bilirubin 0.6 Aspartate Amino Transf (AST/SGOT) 80 H Alanine Aminotransferase (ALT/SGPT) 72 H Alkaline Phosphatase 65 Total Protein 6.6 Albumin 3.4 Globulin 3.20 Albumin/Globulin Ratio 1.06 Medications Medication Current Medications Sodium Chloride 1,000 ml @ 100 mls/hr Q10H IV Last administered on 04/01/19at 01:10; Admin Dose 100 MLS/HR; Start 03/30/19 at 00:07 IV Flush (NS 3 ml) 3 ml PER PROTOCOL IV ; Start 03/30/19 at 00:30 Ondansetron HCl (Zofran Inj) 4 mg Q6H PRN IV NAUSEA/VOMITING; Start 03/30/19 at 00:30 Acetaminophen (Tylenol Tab) 650 mg Q6H PRN PO .PAIN 1-3 OR TEMP; Start 03/30/19 at 00:30 Famotidine (Pepcid Iv) 20 mg Q12 IV Last administered on 04/01/19at 08:04; Admin Dose 20 MG; Start 03/30/19 at 09:00 Albuterol/ Ipratropium (Duoneb) 3 ml Q2H RESP THERAPY PRN HHN SHORTNESS OF BREATH; Start 03/30/19 at 00:30 Multivitamins 10 ml/Thiamine HCl 100 mg/Folic Acid 1 mg/Sodium Chloride 1,011.2 ml @ 125 mls/ hr DAILY@09 IVPB Last administered on 04/01/19at 08:03; Admin Dose 125 MLS/HR; Start 03/31/19 at 09:00 Lorazepam (Ativan) 2 mg Q10MIN PRN IV seizures; Start 03/30/19 at 12:30 Lorazepam (Ativan) 1 mg Q6H PRN IV agitation/anxiety; Start 03/30/19 at 12:30 Doxycycline Hyclate (Vibramycin) 100 mg BID PO Last administered on 04/01/19at 08:03; Admin Dose 100 MG; Start 03/30/19 at 21:00 Cephalexin (Keflex) 500 mg Q6 PO Last administered on 04/01/19at 05:36; Admin Dose 500 MG; Start 03/30/19 at 18:00 Magnesium Sulfate 50 ml @ 25 mls/hr ONCE ONCE IVPB ; Start 04/01/19 at 09:30; Stop 04/01/19 at 11:29 Chlordiazepoxide (Librium) 50 mg BID PO ; Start 04/01/19 at 21:00 CLEO ORTIZ MD Apr 01, 2019 10:40
[2019-04-01 11:24] VITALS: BP 113/69; PULSE 58; RESP 22
[2019-04-01] MEDS: LORAZEPAM 2 MG INJ IV PRN (14:16)
[2019-04-01 15:41] VITALS: BP 115/56; PULSE 61; RESP 22
[2019-04-01 20:03] VITALS: BP 131/75; PULSE 79; RESP 19
[2019-04-01] MEDS: FAMOTIDINE 20 MG TAB PO SCH (20:26)
[2019-04-02] MEDS ORDERED: PENDING SANTYL ORDER FOR WOUND CARE XX PRN (00:30)
[2019-04-02 02:36] VITALS: BP 124/68; PULSE 74; RESP 20
[2019-04-02] MEDS: CEPHALEXIN 500 MG CAP PO SCH ×2 (05:21→12:18)
[2019-04-02 08:36] VITALS: BP 115/80; PULSE 76; RESP 20
[2019-04-02] MEDS: DOXYCYCLINE 100 MG TAB PO SCH (09:25)
[2019-04-02] MEDS: FAMOTIDINE 20 MG TAB PO SCH ×2 (09:25→21:41)
[2019-04-02] MEDS: CHLORDIAZEPOXIDE 25 MG CAP PO SCH (09:25)
[2019-04-02] MEDS: MULTIVITAMINS 10 ML, THIAMINE 100 MG, FOLIC ACID 1 MG in SOD CHLORIDE 0.9% 1,000 ML IVPB SCH (09:26)
[2019-04-02 14:30] VITALS: BP 118/76; PULSE 78; RESP 20
--- NOTE | 2019-04-02 15:58 | PN ---
Date/Time of Note Date/Time of Note DATE: 04/02/19 TIME: 15:53 Assessment/Plan VTE Prophylaxis Risk score (from Nsg)>0 risk: 1 SCD applied (from Nsg): Yes Pharmacological prophylaxis: LMWH Lines/Catheters IV Catheter Type (from Nrsg): PICC Line Central line still needed: Yes Urinary Cath still in place: No Assessment/Plan Assessment/Plan 1. Acute alcohol intoxication and withdrawal - will continue taper Librium - no DTs appreciated and Ativan PRN - Counseled about abstinence from alcohol and not interested in rehab 2. Bilateral foot son - wound care consultation appreciated and will continue local care - will d/c antibiotics 4. Depression - Seen by tele-psych and ER, no suicidal homicidal ideation per record 5. Disposition - continue librium taper - continue local wound care to feet and when ambulating with more steadiness, will d/c home Result Diagram: 04/02/1927 04/02/19 0626 Results 24hrs Laboratory Tests Test 04/02/19 06:26 04/02/19 06:27 Sodium Level 137 Potassium Level 3.8 Chloride Level 103 Carbon Dioxide Level 26 Anion Gap 8 Blood Urea Nitrogen 17 Creatinine 0.73 Est Glomerular Filtrat Rate mL/min > 60 Glucose Level 90 Calcium Level 8.7 Magnesium Level 1.7 Total Bilirubin 0.3 Direct Bilirubin 0.00 Indirect Bilirubin 0.3 Aspartate Amino Transf (AST/SGOT) 63 H Alanine Aminotransferase (ALT/SGPT) 65 Alkaline Phosphatase 67 Total Protein 6.3 Albumin 3.3 Globulin 3.00 Albumin/Globulin Ratio 1.10 White Blood Count 6.8 Red Blood Count 3.35 L Hemoglobin 10.8 L Hematocrit 31.5 L Mean Corpuscular Volume 94.0 Mean Corpuscular Hemoglobin 32.2 Mean Corpuscular Hemoglobin Concent 34.3 Red Cell Distribution Width 12.6 Platelet Count 160 Mean Platelet Volume 9.8 Immature Granulocytes % 1.300 H Neutrophils % 58.6 Lymphocytes % 20.1 Monocytes % 15.4 H Eosinophils % 4.0 Basophils % 0.6 Nucleated Red Blood Cells % 0.0 Immature Granulocytes # 0.090 H Neutrophils # 4.0 Lymphocytes # 1.4 Monocytes # 1.0 H Eosinophils # 0.3 Basophils # 0.0 Nucleated Red Blood Cells # 0.0 Subjective 24 Hr Interval Summary Free Text/Dictation Patient states hes still feeling groggy and per nursing unsteady on his feet. No acute overnight events. Exam/Review of Systems Exam Vitals Vital Signs Date Temp Pulse Resp B/P (MAP) Pulse Ox O2 O2 Flow FiO2 Time Delivery Rate 04/02/19 98.0 78 20 118/76 98 Room Air 14:30 (90) 04/01/19 21 03:09 Intake and Output 04/01/19 04/01/19 04/02/19 1515:00 23:00 07:00 IntakeIntake Total 700 ml 400 ml 670 ml OutputOutput Total 1000 ml 200 ml 500 ml BalanceBalance -300 ml 200 ml 170 ml Exam General: Patient is laying in bed and answers questions appropriately Mentation: Patient is alert and oriented 4, Respiratory: Clear to auscultation bilaterally. no wheezing or rhonchi Cardiovascular: regular rate and rhythm, no obvious murmurs Gastrointestinal: soft, non-tender to palpation, bowel sounds heard. Ext: moving all extremities. no edema, cyanosis, or clubbing Skin: dressing on LE b/l clean, dry Results Results 24hrs Laboratory Tests Test 04/02/19 06:26 04/02/19 06:27 Sodium Level 137 Potassium Level 3.8 Chloride Level 103 Carbon Dioxide Level 26 Anion Gap 8 Blood Urea Nitrogen 17 Creatinine 0.73 Est Glomerular Filtrat Rate mL/min > 60 Glucose Level 90 Calcium Level 8.7 Magnesium Level 1.7 Total Bilirubin 0.3 Direct Bilirubin 0.00 Indirect Bilirubin 0.3 Aspartate Amino Transf (AST/SGOT) 63 H Alanine Aminotransferase (ALT/SGPT) 65 Alkaline Phosphatase 67 Total Protein 6.3 Albumin 3.3 Globulin 3.00 Albumin/Globulin Ratio 1.10 White Blood Count 6.8 Red Blood Count 3.35 L Hemoglobin 10.8 L Hematocrit 31.5 L Mean Corpuscular Volume 94.0 Mean Corpuscular Hemoglobin 32.2 Mean Corpuscular Hemoglobin Concent 34.3 Red Cell Distribution Width 12.6 Platelet Count 160 Mean Platelet Volume 9.8 Immature Granulocytes % 1.300 H Neutrophils % 58.6 Lymphocytes % 20.1 Monocytes % 15.4 H Eosinophils % 4.0 Basophils % 0.6 Nucleated Red Blood Cells % 0.0 Immature Granulocytes # 0.090 H Neutrophils # 4.0 Lymphocytes # 1.4 Monocytes # 1.0 H Eosinophils # 0.3 Basophils # 0.0 Nucleated Red Blood Cells # 0.0 Medications Medication Current Medications IV Flush (NS 3 ml) 3 ml PER PROTOCOL IV ; Start 03/30/19 at 00:30 Ondansetron HCl (Zofran Inj) 4 mg Q6H PRN IV NAUSEA/VOMITING; Start 03/30/19 at 00:30 Acetaminophen (Tylenol Tab) 650 mg Q6H PRN PO .PAIN 1-3 OR TEMP; Start 03/30/19 at 00:30 Albuterol/ Ipratropium (Duoneb) 3 ml Q2H RESP THERAPY PRN HHN SHORTNESS OF BREATH; Start 03/30/19 at 00:30 Lorazepam (Ativan) 2 mg Q10MIN PRN IV seizures; Start 03/30/19 at 12:30 Lorazepam (Ativan) 1 mg Q6H PRN IV agitation/anxiety Last administered on 04/01/19at 14:16; Admin Dose 1 MG; Start 03/30/19 at 12:30 Doxycycline Hyclate (Vibramycin) 100 mg BID PO Last administered on 04/02/19at 09:25; Admin Dose 100 MG; Start 03/30/19 at 21:00 Cephalexin (Keflex) 500 mg Q6 PO Last administered on 04/02/19at 12:18; Admin Dose 500 MG; Start 03/30/19 at 18:00 IV Flush (NS 10 ml) 10 ml PRN PRN IV per protocol; Start 04/01/19 at 17:00 Famotidine (Pepcid) 20 mg Q12 PO Last administered on 04/02/19at 09:25; Admin Dose 20 MG; Start 04/01/19 at 21:00 Miscellaneous Information (Pending Santyl Order For Wound Care) This patient mcmillan... PRN PRN XX WOUND CARE; Start 04/02/19 at 00:30 Chlordiazepoxide (Librium) 25 mg ONCE ONCE PO ; Start 04/03/19 at 09:00; Stop 04/03/19 at 09:01 CLEO ORTIZ MD Apr 02, 2019 15:58
[2019-04-02 19:47] VITALS: BP 117/81; PULSE 69; RESP 16
[2019-04-02] MEDS: LORAZEPAM 2 MG INJ IV PRN (21:41)
[2019-04-02] MEDS ORDERED: COLLAGENASE 5 GM (UD JAR) TOP ONE (21:51)
[2019-04-02] MEDS: COLLAGENASE 5 GM (UD JAR) TOP SCH (21:58)
[2019-04-03] MEDS ORDERED: ZOLPIDEM 5 MG TAB PO ONE
[2019-04-03 02:15] VITALS: BP 126/73; PULSE 70; RESP 16
[2019-04-03 08:00] VITALS: BP 134/73; PULSE 58; RESP 16
[2019-04-03] MEDS ORDERED: CHLORDIAZEPOXIDE 25 MG CAP PO ONE (09:00)
[2019-04-03] MEDS: FAMOTIDINE 20 MG TAB PO SCH ×2 (11:13→21:20)
[2019-04-03] MEDS: COLLAGENASE 5 GM (UD JAR) TOP SCH (11:15)
--- NOTE | 2019-04-03 12:51 | PN ---
Date/Time of Note Date/Time of Note DATE: 04/03/19 TIME: 12:47 Assessment/Plan VTE Prophylaxis Risk score (from Ns)>0 risk: 1 SCD applied (from Ns): No SCD contraindicated: low risk/ambulating Pharmacological prophylaxis: LMWH Lines/Catheters IV Catheter Type (from Nrsg): PICC Line Central line still needed: Yes Urinary Cath still in place: No Assessment/Plan Assessment/Plan 1. Acute alcohol intoxication and withdrawal - will continue slow taper Librium with next dose 10mg tomorrow then will stop - no DTs appreciated and Ativan PRN - Counseled about abstinence from alcohol and not interested in rehab 2. Bilateral foot son - wound care consultation appreciated and will continue local care. once able to ambulate with more steadiness, will d/c home - will d/c antibiotics 3. Depression - Seen by tele-psych and ER, no suicidal homicidal ideation per record 4. Disposition - continue Librium taper - continue local wound care to feet and when ambulating with more steadiness, will d/c home Result Diagram: 04/03/19 0553 04/03/19 0553 Results 24hrs Laboratory Tests Test 04/03/19 05:53 04/03/19 07:13 White Blood Count 7.4 Red Blood Count 3.25 L Hemoglobin 10.8 L Hematocrit 30.5 L Mean Corpuscular Volume 93.8 Mean Corpuscular Hemoglobin 33.2 H Mean Corpuscular Hemoglobin Concent 35.4 Red Cell Distribution Width 12.8 Platelet Count 185 Mean Platelet Volume 9.6 Immature Granulocytes % 1.600 H Neutrophils % 56.0 Lymphocytes % 22.5 Monocytes % 15.6 H Eosinophils % 3.5 Basophils % 0.8 Nucleated Red Blood Cells % 0.0 Immature Granulocytes # 0.120 H Neutrophils # 4.1 Lymphocytes # 1.7 Monocytes # 1.2 H Eosinophils # 0.3 Basophils # 0.1 Nucleated Red Blood Cells # 0.0 Sodium Level 139 Potassium Level 4.1 Chloride Level 103 Carbon Dioxide Level 27 Anion Gap 9 Blood Urea Nitrogen 16 Creatinine 0.79 Est Glomerular Filtrat Rate mL/min > 60 Glucose Level 100 Calcium Level 8.9 Magnesium Level 1.7 Total Bilirubin 0.2 Direct Bilirubin 0.00 Indirect Bilirubin 0.2 Aspartate Amino Transf (AST/SGOT) 53 H Alanine Aminotransferase (ALT/SGPT) 72 H Alkaline Phosphatase 70 Total Protein 6.2 Albumin 3.3 Globulin 2.90 Albumin/Globulin Ratio 1.13 Lab Scanned Report REFERENCE LAB Subjective 24 Hr Interval Summary Free Text/Dictation Patient states he's feeling better but still off balanced when ambulating. No acute overnight events. Exam/Review of Systems Exam Vitals Vital Signs Date Temp Pulse Resp B/P (MAP) Pulse Ox O2 O2 Flow FiO2 Time Delivery Rate 04/03/19 97.4 58 16 134/73 97 08:00 (93) 04/03/19 Room Air 02:15 04/01/19 21 03:09 Intake and Output 04/02/19 04/02/19 04/03/19 1515:00 23:00 07:00 IntakeIntake Total 1040 ml 1681.2 ml BalanceBalance 1040 ml 1681.2 ml Exam General: Patient is laying in bed and answers questions appropriately Mentation: Patient is alert and oriented 4, Respiratory: Clear to auscultation bilaterally. no wheezing or rhonchi Cardiovascular: regular rate and rhythm, no obvious murmurs Gastrointestinal: soft, non-tender to palpation, bowel sounds heard. Ext: moving all extremities. no edema, cyanosis, or clubbing Skin: dressing on LE b/l clean, dry Results Results 24hrs Laboratory Tests Test 04/03/19 05:53 04/03/19 07:13 White Blood Count 7.4 Red Blood Count 3.25 L Hemoglobin 10.8 L Hematocrit 30.5 L Mean Corpuscular Volume 93.8 Mean Corpuscular Hemoglobin 33.2 H Mean Corpuscular Hemoglobin Concent 35.4 Red Cell Distribution Width 12.8 Platelet Count 185 Mean Platelet Volume 9.6 Immature Granulocytes % 1.600 H Neutrophils % 56.0 Lymphocytes % 22.5 Monocytes % 15.6 H Eosinophils % 3.5 Basophils % 0.8 Nucleated Red Blood Cells % 0.0 Immature Granulocytes # 0.120 H Neutrophils # 4.1 Lymphocytes # 1.7 Monocytes # 1.2 H Eosinophils # 0.3 Basophils # 0.1 Nucleated Red Blood Cells # 0.0 Sodium Level 139 Potassium Level 4.1 Chloride Level 103 Carbon Dioxide Level 27 Anion Gap 9 Blood Urea Nitrogen 16 Creatinine 0.79 Est Glomerular Filtrat Rate mL/min > 60 Glucose Level 100 Calcium Level 8.9 Magnesium Level 1.7 Total Bilirubin 0.2 Direct Bilirubin 0.00 Indirect Bilirubin 0.2 Aspartate Amino Transf (AST/SGOT) 53 H Alanine Aminotransferase (ALT/SGPT) 72 H Alkaline Phosphatase 70 Total Protein 6.2 Albumin 3.3 Globulin 2.90 Albumin/Globulin Ratio 1.13 Lab Scanned Report REFERENCE LAB Medications Medication Current Medications IV Flush (NS 3 ml) 3 ml PER PROTOCOL IV ; Start 03/30/19 at 00:30 Ondansetron HCl (Zofran Inj) 4 mg Q6H PRN IV NAUSEA/VOMITING; Start 03/30/19 at 00:30 Acetaminophen (Tylenol Tab) 650 mg Q6H PRN PO .PAIN 1-3 OR TEMP Last administe red on 04/03/19at 00:57; Admin Dose 650 MG; Start 03/30/19 at 00:30 Albuterol/ Ipratropium (Duoneb) 3 ml Q2H RESP THERAPY PRN HHN SHORTNESS OF BREATH; Start 03/30/19 at 00:30 Lorazepam (Ativan) 2 mg Q10MIN PRN IV seizures; Start 03/30/19 at 12:30 Lorazepam (Ativan) 1 mg Q6H PRN IV agitation/anxiety Last administered on 04/02/19at 21:41; Admin Dose 1 MG; Start 03/30/19 at 12:30 IV Flush (NS 10 ml) 10 ml PRN PRN IV per protocol; Start 04/01/19 at 17:00 Famotidine (Pepcid) 20 mg Q12 PO Last administered on 04/03/19at 11:13; Admin Dose 20 MG; Start 04/01/19 at 21:00 Miscellaneous Information (Pending Santyl Order For Wound Care) This patient mcmlilan... PRN PRN XX WOUND CARE; Start 04/02/19 at 00:30 Collagenase (Santyl) 1 applic DAILY TOP Last administered on 04/03/19at 11:15; Admin Dose 1 APPLIC; Start 04/03/19 at 09:00 Chlordiazepoxide (Librium) 10 mg ONCE ONCE PO ; Start 04/04/19 at 09:00; Stop 04/04/19 at 09:01 CLEO ORTIZ MD Apr 03, 2019 12:51
[2019-04-03 14:00] VITALS: BP 109/64; PULSE 72; RESP 16
[2019-04-03 19:52] VITALS: BP 108/70; PULSE 75; RESP 20
[2019-04-04 02:23] VITALS: BP 115/73; PULSE 68; RESP 16
[2019-04-04 07:45] VITALS: BP 111/74; PULSE 70; RESP 18
[2019-04-04] MEDS: COLLAGENASE 5 GM (UD JAR) TOP SCH (08:54)
[2019-04-04] MEDS: FAMOTIDINE 20 MG TAB PO SCH ×2 (08:54→20:10)
[2019-04-04] MEDS ORDERED: CHLORDIAZEPOXIDE 5 MG CAP PO ONE (09:00)
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
[2019-04-04 14:30] VITALS: BP 119/76; PULSE 79; RESP 18
[2019-04-04 20:00] VITALS: BP 117/70; PULSE 92; RESP 17
[2019-04-05 02:00] VITALS: BP 115/71; PULSE 64; RESP 18
[2019-04-05 08:36] VITALS: BP 104/68; PULSE 72; RESP 18
[2019-04-05] MEDS: FAMOTIDINE 20 MG TAB PO SCH (08:56)
[2019-04-05] MEDS: COLLAGENASE 5 GM (UD JAR) TOP SCH (08:56)
--- NOTE | 2019-04-05 11:48 | PN ---
Date/Time of Note Date/Time of Note DATE: 04/05/19 TIME: 11:44 Assessment/Plan VTE Prophylaxis Risk score (from Ns)>0 risk: 4 SCD applied (from Ns): No SCD contraindicated: low risk/ambulating Pharmacological prophylaxis: NA/contraindicated Pharm contraindication: low risk/ambulating Lines/Catheters IV Catheter Type (from Nrs): PICC Line Central line still needed: No Urinary Cath still in place: No Assessment/Plan Assessment/Plan 1. Acute alcohol intoxication and withdrawal- resolved - Patient doing well and no signs of DTs. Finished Librium taper - Counseled about abstinence from alcohol and not interested in rehab 2. Bilateral foot son - CM consulted for home wound care. will need to keep feet clean and dry. Apply plurogel burn every other day with dressing changes - wound care consultation appreciated and will continue local care. 3. Depression - Seen by tele-psych and ER, no suicidal homicidal ideation per record 4. Disposition - Medically stable for discharge home Result Diagram: 04/03/19 0553 04/03/19 0553 Subjective 24 Hr Interval Summary Free Text/Dictation Patient is doing well and states hes feeling more stable on his feet. Ready for discharge home. Exam/Review of Systems Exam Vitals Vital Signs Date Temp Pulse Resp B/P (MAP) Pulse Ox O2 O2 Flow FiO2 Time Delivery Rate 04/05/19 98.0 72 18 104/68 95 Room Air 08:36 (80) Intake and Output 04/04/19 04/04/19 04/05/19 1515:00 23:00 07:00 IntakeIntake Total 700 ml 480 ml BalanceBalance 700 ml 480 ml Exam General: Patient is shaving in bathroom. no acute distress Respiratory: Clear to auscultation bilaterally. no wheezing or rhonchi Cardiovascular: regular rate and rhythm, no obvious murmurs Gastrointestinal: soft, non-tender to palpation, bowel sounds heard. Ext: moving all extremities. no edema, cyanosis, or clubbing Skin: dressing on LE b/l clean, dry Medications Medication Current Medications IV Flush (NS 3 ml) 3 ml PER PROTOCOL IV ; Start 03/30/19 at 00:30 Ondansetron HCl (Zofran Inj) 4 mg Q6H PRN IV NAUSEA/VOMITING; Start 03/30/19 at 00:30 Acetaminophen (Tylenol Tab) 650 mg Q6H PRN PO .PAIN 1-3 OR TEMP Last administered on 04/03/19at 00:57; Admin Dose 650 MG; Start 03/30/19 at 00:30 Albuterol/ Ipratropium (Duoneb) 3 ml Q2H RESP THERAPY PRN HHN SHORTNESS OF BREATH; Start 03/30/19 at 00:30 Lorazepam (Ativan) 2 mg Q10MIN PRN IV seizures; Start 03/30/19 at 12:30 Lorazepam (Ativan) 1 mg Q6H PRN IV agitation/anxiety Last administered on 04/02/19at 21:41; Admin Dose 1 MG; Start 03/30/19 at 12:30 IV Flush (NS 10 ml) 10 ml PRN PRN IV per protocol; Start 04/01/19 at 17:00 Famotidine (Pepcid) 20 mg Q12 PO Last administered on 04/05/19at 08:56; Admin Dose 20 MG; Start 04/01/19 at 21:00 Miscellaneous Information (Pending Santyl Order For Wound Care) This patient mcmillan... PRN PRN XX WOUND CARE; Start 04/02/19 at 00:30 Collagenase (Santyl) 1 applic DAILY TOP Last administered on 04/05/19at 08:56; Admin Dose 1 APPLIC; Start 04/03/19 at 09:00 CLEO ORTIZ MD Apr 05, 2019 11:48
--- NOTE | 2019-04-05 11:53 | PDOCDIS ---
Discharge Instructions DIAGNOSIS Discharge Diagnosis 1. Acute alcohol intoxication and withdrawal- resolved 2. Bilateral foot son- improving 3. Depression CONDITION [id number] Patient Condition: [id number] Stable HOME CARE INSTRUCTIONS: Yisel Diet Instructions: [id number] Low Fat /Cholesterol ACTIVITY: [id number] Activity Restrictions: [id number] No Restrictions FOLLOW UP/APPOINTMENTS Follow-up Plan 1. Follow up with your primary care physician in 1-2 weeks 2. Please refrain from alcohol use since lead to your hospitalization 3. Continue keeping feet clean and dry and avoid walking barefoot on hot pavement while healing 4. If experiencing any concerning symptoms. please go to your nearest emergency department CLEO ORTIZ MD Apr 05, 2019 11:53
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
== END 2019-04-05 12:30 | disposition home health service (06) | DRG 896 ==
LOC: E/R 22:04 → TEL 03-29 18:07 → CANRESERV 03-30 02:39 → TEL 03-30 04:41 → PP2 04-01 17:30
PROVIDERS: ADMIT Internal Medicine; ATTEND Internal Medicine
PROC: 02HV33Z Insertion of Infusion Device into Superior Vena Cava, Percutaneous Approach (ICD-10-PCS; principal; 2019-04-01)
DX: F10.239 Alcohol dependence with withdrawal, unspecified (principal); L89.133 Pressure ulcer of right lower back, stage 3; L89.153 Pressure ulcer of sacral region, stage 3; F10.229 Alcohol dependence with intoxication, unspecified; F17.210 Nicotine dependence, cigarettes, uncomplicated; D64.9 Anemia, unspecified; R74.0 Nonspecific elevation of levels of transaminase and lactic acid dehydrogenase [LDH]; L97.529 Non-pressure chronic ulcer of other part of left foot with unspecified severity; L97.519 Non-pressure chronic ulcer of other part of right foot with unspecified severity; F32.9 Major depressive disorder, single episode, unspecified; Y90.8 Blood alcohol level of 240 mg/100 ml or more
CPT/HCPCS: 36569; 71045; 76705; 80053; 80307; 81001; 83735; 85025; 87081; 87086; 96374; 96375; 97116; 97161; 97166; J0692; J2060; J3360; J3411; J3475; J7030; J7120

== ENCOUNTER 2019-04-07 13:06 | Emergency (ER) | payer OTHER ==
[~2019-04-07] VITALS: Ht 177.8 cm; Wt 56.0 kg
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
[2019-04-07 13:25] VITALS: Ht 177.8 cm; Wt 56.0 kg
[2019-04-07] MEDS ORDERED: DIPHTH/TET/ACEL PERTUSS (ADULT) 0.5 ML VIAL IM* ONE (13:30)
[2019-04-07] MEDS ORDERED: SOD CHLORIDE 0.9% 1,000 ML IV ONE (16:00)
[2019-04-07] MEDS ORDERED: CEPH-443 PO (20:29)
[2019-04-07] MEDS ORDERED: BACI28.34 TOP (20:30)
[2019-04-08 05:45] VITALS: BP 112/60; PULSE 80; RESP 18
== END 2019-04-08 05:46 | disposition home or self-care (01) ==
LOC: E/R 13:06
DX: S00.81XA Abrasion of other part of head, initial encounter (principal); D64.9 Anemia, unspecified; R74.0 Nonspecific elevation of levels of transaminase and lactic acid dehydrogenase [LDH]; F10.129 Alcohol abuse with intoxication, unspecified; R51 Headache; Y09 Assault by unspecified means; Z23 Encounter for immunization; Z87.891 Personal history of nicotine dependence
CPT/HCPCS: 70450; 70486; 71045; 72125; 80053; 80307; 81003; 85025; 90715; J7030; 90471; 96360; 96361

== ENCOUNTER 2019-04-08 13:24 | Emergency (ER) | payer OTHER ==
[~2019-04-08] VITALS: Ht 170.2 cm; Wt 71.0 kg
[~2019-04-08 13:24] MED LIST: BACI28.34 TOP; CEPH-443 PO
[2019-04-08 13:39] VITALS: Ht 170.2 cm; Wt 71.0 kg
[2019-04-08 15:30] VITALS: BP 137/71; PULSE 89; RESP 20
--- NOTE | 2019-04-08 18:24 | ERD ---
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 He has been voicing suicidal ideations to his friend. He states that "I want to end it". Patient is an alcoholic and has been drinking today. He was here yesterday for evaluation of facial injury. He had CT scan of his head which did not show any significant abnormalities. He was sent home. He is complaining of being depressed and not wanting to live anymore. He states that he wants to drink enough to "end it all". ROS All systems reviewed and are negative except as per history of present illness. Medications Home Meds Active Scripts Bacitracin* (Bacitracin Zinc Oint*) 28.35 Gm Oint, 1 APPLIC TOP BID for 10 Days, TUB APPLI TO Prov:ANT COE MD 04/07/19 Cephalexin* (Keflex*) 500 Mg Capsule, 500 MG PO QID for 7 Days, CAP Prov:ANT COE MD 04/07/19 Allergies Allergies: Coded Allergies: No Known Drug Allergies (Verified Allergy, Unknown, 04/08/19) PMhx/Soc History of Surgery: Yes (LUNG SX, HEART SX, HEAD SX) Anesthesia Reaction: No Hx Neurological Disorder: No Hx Respiratory Disorders: Yes Hx Cardiac Disorders: Yes Hx Psychiatric Problems: Yes (DEPRESSION) Hx Miscellaneous Medical Probl: No Hx Alcohol Use: Yes (DRINKING TODAY) Hx Substance Use: No (DENIES) Hx Tobacco Use: No (DENIES) Smoking Status: Never smoker FmHx Family History: No diabetes Physical Exam Vitals Vital Signs Date Temp Pulse Resp B/P (MAP) Pulse Ox O2 O2 Flow FiO2 Time Delivery Rate 04/08/19 98.9 119 18 123/66 98 13:39 (85) Physical Exam Const: Intoxicated, in no apparent distress Head: Right cheek swelling and bruising, appears old. Eyes: Normal Conjunctiva.EOMI, PERRLA ENT: Normal External Ears, Nose and Mouth. Neck: Full range of motion. No meningismus. Resp: Clear to auscultation bilaterally Cardio: Regular rate and rhythm, no murmurs Abd: Soft, non tender, non distended. Normal bowel sounds Skin: Old ecchymoses noted on arms Back: No midline or flank tenderness Ext: No cyanosis, or edema Neur: Awake and alert, normal slightly slurred speech consistent with intoxication. Cranial nerves grossly intact. Moving all extremities spontaneously Psych: Depressed, emotionally labile, positive SI, no HI Result Diagram: 04/08/19 1436 04/08/19 1436 Results 24 hrs Laboratory Tests Test 04/08/19 14:36 04/08/19 17:11 White Blood Count 11.0 10^3/ul Red Blood Count 3.42 10^6/ul Hemoglobin 11.1 g/dl Hematocrit 33.1 % Mean Corpuscular Volume 96.8 fl Mean Corpuscular Hemoglobin 32.5 pg Mean Corpuscular Hemoglobin Concent 33.5 g/dl Red Cell Distribution Width 13.6 % Platelet Count 365 10^3/UL Mean Platelet Volume 8.3 fl Immature Granulocytes % 0.500 % Neutrophils % 75.2 % Lymphocytes % 13.2 % Monocytes % 10.0 % Eosinophils % 0.4 % Basophils % 0.7 % Nucleated Red Blood Cells % 0.0 /100WBC Immature Granulocytes # 0.060 10^3/ul Neutrophils # 8.2 10^3/ul Lymphocytes # 1.5 10^3/ul Monocytes # 1.1 10^3/ul Eosinophils # 0.0 10^3/ul Basophils # 0.1 10^3/ul Nucleated Red Blood Cells # 0.0 10^3/ul Sodium Level 139 mmol/L Potassium Level 3.8 mmol/L Chloride Level 103 mmol/L Carbon Dioxide Level 23 mmol/L Anion Gap 13 Blood Urea Nitrogen 6 mg/dl Creatinine 0.80 mg/dl Est Glomerular Filtrat Rate mL/min > 60 mL/min Glucose Level 110 mg/dl Calcium Level 8.9 mg/dl Total Bilirubin 0.5 mg/dl Direct Bilirubin 0.00 mg/dl Indirect Bilirubin 0.5 mg/dl Aspartate Amino Transf (AST/SGOT) 72 IU/L Alanine Aminotransferase (ALT/SGPT) 87 IU/L Alkaline Phosphatase 60 IU/L Total Protein 7.1 g/dl Albumin 3.9 g/dl Globulin 3.20 g/dl Albumin/Globulin Ratio 1.21 Salicylates Level < 1.0 mg/dl Acetaminophen Level < 10.0 ug/ml Ethyl Alcohol Level 225.0 mg/dl Urine Color STRAW Urine Clarity CLEAR Urine pH 5.0 Urine Specific [employer] 1.003 Urine Ketones NEGATIVE mg/dL Urine Nitrite NEGATIVE mg/dL Urine Bilirubin NEGATIVE mg/dL Urine Urobilinogen NEGATIVE mg/dL Urine Leukocyte Esterase NEGATIVE Cindy/ul Urine Hemoglobin NEGATIVE mg/dL Urine Glucose NEGATIVE mg/dL Urine Total Protein NEGATIVE mg/dl Urine Opiates Screen Negative Urine Barbiturates Negative Urine Amphetamines Screen Negative Urine Benzodiazepines Screen Positive Urine Cocaine Screen Negative Urine Cannabinoids Negative Procedures/MDM EMERGENT LABS AND DIAGNOSTIC STUDIES: Lab Results above were reviewed and interpreted by me. CBC: no anemia or evidence of infection CMP: Mild transaminitis, likely secondary to alcohol abuse. No evidence of clinically significant electrolyte abnormality, acidosis, renal failure, hypogl ycemia, liver disease, or biliary obstruction Urine drug screen positive for benzodiazepines Alcohol level elevated, consistent with intoxication UA: no evidence of infection Initial Nursing notes reviewed. Previous Medical Records requested via the Electronic Health Record. EMERGENCY DEPARTMENT COURSE / MEDICAL DECISION MAKING: Patients presented with suicidal ideations and alcohol intoxication. Vitals were notable for tachycardia. Patient maintaining airway. I have a low suspicion for serious metabolic or electrolyte derangement, intracranial hemorrhage, acute infectious process, meningitis/encephalitis, or CVA. Patient was observed for 5 hours in the ER with serial examinations and mental status evaluations. The patients symptoms have not completely resolved and not yet ready for psychiatric evaluation. Patient will continue to be observed in the department for improvement of symptoms and he is more sober for evaluation. Patient will be signed out to the oncoming ED physician, pending tele-psychiatry consult. Departure Diagnosis: Primary Impression: Suicidal ideation Additional Impressions: Depressed Depression Type: unspecified Qualified Codes: F32.9 - Major depressive disorder, single episode, unspecified Alcoholic intoxication Complication of substance-induced condition: uncomplicated Qualified Codes: F10.920 - Alcohol use, unspecified with intoxication, uncomplicated Transaminitis Condition: Serious PIEDAD CHAVES MD Apr 08, 2019 18:24
--- NOTE | 2019-04-08 20:33 | PSY ---
Date/Time of Note Date/Time of Note DATE: 04/08/19 TIME: 20:19 Psychiatric Subjective Eval Consent Pt consented to telemedicine: Yes Subjective Evaluation Patient location: emergency Chief Complaint: bib co worker , etoh , feeling depressed ," i want to end it , i am tired" Reason for consult: suicidal ideation History of present illness He stated he has been depressed on and off for a couple of years. He stated that every once in a while he will drink to calm himself down. He said his friend brought him in today as he told his friend that he is tired of everything that's going such as problems with people he's living with and "the usual bullshit." He stated most recently he has felt down for a couple of weeks. He stated he can always function and stated he only gets "a little blue." He has never missed work due to being depressed. He stated he is very sensitive and things bother him more easily than others. He stated, "I definitely don't want to harm myself or anyone else. I like life; I just wish it was on better terms." He stated he has good energy for his age and is always feeling pretty happy when he's at work. He can sleep well at night. He has a normal appetite. He does not own guns and does not like them. Past psychiatric history Denied any past MH treatment. Denied any past admissions. Denied any past suicide attempts stating, "No, and I don't want to!" Hospitalization: no Family History +Alcoholism. No family history of suicide. Medical history Problems Medical Problems: (1) Alcohol abuse Status: Acute (2) Alcohol abuse, daily use Status: Acute (3) Alcohol abuse, daily use Status: Acute (4) Alcohol intoxication Status: Acute (5) Alcoholic intoxication Status: Acute (6) Anemia Status: Acute (7) Depressed Status: Acute (8) Depressed Status: Acute (9) Depression Status: Acute (10) Facial abrasion Status: Acute (11) Facial abrasion Status: Acute (12) Leukocytosis Status: Acute (13) Normocytic anemia Status: Acute (14) Suicidal ideation Status: Acute (15) Transaminitis Status: Acute (16) Transaminitis Status: Acute Allergies: Coded Allergies: No Known Drug Allergies (Verified Allergy, Unknown, 04/08/19) Substance Abuse Substance use: other (Drinks once every 7-8 months but drinks a lot ("I binge") when he does drink. No drug use. ) Substance abuse history: Yes Prior substance abuse treatmen: Yes (Got a DUI [address]- ordered treatment. ) Social History Marital status: single DPA/Conservatorship: No Occupation/Fpc: Works in a [employer]. Has a stable residence. Psychiatric Objective Eval Physical Examination: Sleep: Adequate Appetite: Adequate Energy: Adequate Interest: Adequate Mental Status Examination: Appearance: Groomed Eye Contact: Good Psychomotor Activity: Normal Behavior: Friendly, Cooperative Speech: Clear AFFECT: Appropriate Mood: Appropriate/Full Though Process: Linear Thought Content: Normal Suicidal: No Homicidal: No On 72 hour hold: No Orientation: x4 Cognition: Alert Insight: Intact Judgement: Intact Attention Span: Intact Laboratory Results Laboratory Tests Test 04/08/19 14:36 04/08/19 17:11 White Blood Count 11.0 10^3/ul Red Blood Count 3.42 10^6/ul Hemoglobin 11.1 g/dl Hematocrit 33.1 % Mean Corpuscular Volume 96.8 fl Mean Corpuscular Hemoglobin 32.5 pg Mean Corpuscular Hemoglobin Concent 33.5 g/dl Red Cell Distribution Width 13.6 % Platelet Count 365 10^3/UL Mean Platelet Volume 8.3 fl Immature Granulocytes % 0.500 % Neutrophils % 75.2 % Lymphocytes % 13.2 % Monocytes % 10.0 % Eosinophils % 0.4 % Basophils % 0.7 % Nucleated Red Blood Cells % 0.0 /100WBC Immature Granulocytes # 0.060 10^3/ul Neutrophils # 8.2 10^3/ul Lymphocytes # 1.5 10^3/ul Monocytes # 1.1 10^3/ul Eosinophils # 0.0 10^3/ul Basophils # 0.1 10^3/ul Nucleated Red Blood Cells # 0.0 10^3/ul Sodium Level 139 mmol/L Potassium Level 3.8 mmol/L Chloride Level 103 mmol/L Carbon Dioxide Level 23 mmol/L Anion Gap 13 Blood Urea Nitrogen 6 mg/dl Creatinine 0.80 mg/dl Est Glomerular Filtrat Rate mL/min > 60 mL/min Glucose Level 110 mg/dl Calcium Level 8.9 mg/dl Total Bilirubin 0.5 mg/dl Direct Bilirubin 0.00 mg/dl Indirect Bilirubin 0.5 mg/dl Aspartate Amino Transf (AST/SGOT) 72 IU/L Alanine Aminotransferase (ALT/SGPT) 87 IU/L Alkaline Phosphatase 60 IU/L Total Protein 7.1 g/dl Albumin 3.9 g/dl Globulin 3.20 g/dl Albumin/Globulin Ratio 1.21 Salicylates Level < 1.0 mg/dl Acetaminophen Level < 10.0 ug/ml Ethyl Alcohol Level 225.0 mg/dl Urine Color STRAW Urine Clarity CLEAR Urine pH 5.0 Urine Specific [place] 1.003 Urine Ketones NEGATIVE mg/dL Urine Nitrite NEGATIVE mg/dL Urine Bilirubin NEGATIVE mg/dL Urine Urobilinogen NEGATIVE mg/dL Urine Leukocyte Esterase NEGATIVE Cindy/ul Urine Hemoglobin NEGATIVE mg/dL Urine Glucose NEGATIVE mg/dL Urine Total Protein NEGATIVE mg/dl Urine Opiates Screen Negative Urine Barbiturates Negative Urine Amphetamines Screen Negative Urine Benzodiazepines Screen Positive Urine Cocaine Screen Negative Urine Cannabinoids Negative Assessment and Plan Assessment/Diagnosis Diagnosis Alcohol Use Disorder Recommendation/Plan Multiple antipsychotics: No Discharge Disposition: Community (Home) Legal Status: Voluntary Other Individual stated he gets a little depressed about life stressors but does not have impaired functioning due to his mood and reported no neurovegetative symptoms of depression. He stated he enjoys life and has not contemplated killing himself (or others). He drinks rarely but does drink to excess when he does drink. He reported no past suicide attempts, no history of mental illness, no family history of suicide, and no access to guns. On exam he did not appear depressed or anxious and had a bright affect. Overall he doesn't appear at high imminent suicide or violence risk but should be monitored in the ED until his alcohol has completely metabolized to mitigate the risk caused by intoxication. Outpatient substance abuse resources are also recommended. TOBI WOLFF MD Apr 08, 2019 20:32
== END 2019-04-08 21:01 | disposition home or self-care (01) ==
LOC: E/R 13:24
DX: F32.9 Major depressive disorder, single episode, unspecified (principal); R40.2142 Coma scale, eyes open, spontaneous, at arrival to emergency department; R40.2362 Coma scale, best motor response, obeys commands, at arrival to emergency department; R40.2252 Coma scale, best verbal response, oriented, at arrival to emergency department; F10.920 Alcohol use, unspecified with intoxication, uncomplicated; R74.0 Nonspecific elevation of levels of transaminase and lactic acid dehydrogenase [LDH]
CPT/HCPCS: 80053; 80307; 81003; 85025; Z7502; 99285

== ENCOUNTER 2019-04-09 14:21 | Emergency (ER) | payer OTHER ==
[~2019-04-09] VITALS: Ht 162.6 cm; Wt 70.0 kg
[2019-04-09 14:31] VITALS: Ht 162.6 cm; Wt 70.0 kg
--- NOTE | 2019-04-09 16:09 | ERD ---
ER Documentation Chief Complaint Chief Complaint ETOH INTOXICATION HPI 59-year-old male brought in by paramedics after being found unable to take care of himself apparently intoxicated. There is no further history available from the patient as he appears intoxicated. 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 Pre-hospital vital signs were reviewed. Pre-hospital diagnostic tests were reviewed. ROS All systems reviewed and are negative except as per history of present illness. Medications Home Meds Active Scripts Bacitracin* (Bacitracin Zinc Oint*) 28.35 Gm Oint, 1 APPLIC TOP BID for 10 Days, TUB APPLI TO Prov:ANT COE MD 04/07/19 Cephalexin* (Keflex*) 500 Mg Capsule, 500 MG PO QID for 7 Days, CAP Prov:ANT COE MD 04/07/19 Allergies Allergies: Coded Allergies: No Known Drug Allergies (Verified Allergy, Unknown, 04/09/19) PMhx/Soc History of Surgery: Yes (LUNG SX, HEART SX, HEAD SX) Anesthesia Reaction: No Hx Neurological Disorder: No Hx Respiratory Disorders: Yes Hx Cardiac Disorders: Yes Hx Psychiatric Problems: Yes (DEPRESSION) Hx Miscellaneous Medical Probl: No Hx Alcohol Use: Yes (DRINKING TODAY) Hx Substance Use: No (DENIES) Hx Tobacco Use: No (DENIES) Smoking Status: Never smoker FmHx Unknown Physical Exam Vitals Vital Signs Date Temp Pulse Resp B/P (MAP) Pulse Ox O2 O2 Flow FiO2 Time Delivery Rate 04/09/19 102 16 99/69 (79) 95 Room Air 15:41 04/09/19 98.1 99 18 130/78 99 14:31 (95) Physical Exam GENERAL: The patient is well developed and appropriate for usual state of health in no apparent distress, he smells of alcohol and appears intoxicated HEENT: Pupils equal, round, and reactive to light. EOMI. There is no scleral icterus. There are abrasions about the face with no evidence of skull fracture or basilar skull trauma NECK: C-spine is soft and supple, there is no meningismus. There is no cervical lymphadenopathy. LUNGS: Clear to auscultation bilaterally. There are no rales, wheezes or rhonchi. HEART: Regular rate and rhythm, no murmurs, clicks, rubs or gallops. ABDOMEN: Soft, non-tender, non-distended. There are bowel sounds in all four quadrants. No rebound or guarding. EXTREMITIES: There is no peripheral cyanosis or edema. No focal swelling or erythema. NEURO: The patient moves all four extremities with 5/5 strength. Cranial nerves II - XII are intact. Unsteady gait. Slurred speech. Patient appears intoxicated SKIN: There is no apparent rash or petechiae. HEME/LYMPHATIC: There is no evidence of excessive bruising or lymphedema. PSYCHIATRIC: The patient does not appear anxious or depressed.He appears drunk. Result Diagram: 04/09/19 1511 04/09/19 1511 Results 24 hrs Laboratory Tests Test 04/09/19 15:11 White Blood Count 9.4 10^3/ul Red Blood Count 3.50 10^6/ul Hemoglobin 11.3 g/dl Hematocrit 34.1 % Mean Corpuscular Volume 97.4 fl Mean Corpuscular Hemoglobin 32.3 pg Mean Corpuscular Hemoglobin Concent 33.1 g/dl Red Cell Distribution Width 13.8 % Platelet Count 421 10^3/UL Mean Platelet Volume 8.3 fl Immature Granulocytes % 0.500 % Neutrophils % 71.9 % Lymphocytes % 16.9 % Monocytes % 8.7 % Eosinophils % 1.0 % Basophils % 1.0 % Nucleated Red Blood Cells % 0.0 /100WBC Immature Granulocytes # 0.050 10^3/ul Neutrophils # 6.8 10^3/ul Lymphocytes # 1.6 10^3/ul Monocytes # 0.8 10^3/ul Eosinophils # 0.1 10^3/ul Basophils # 0.1 10^3/ul Nucleated Red Blood Cells # 0.0 10^3/ul Sodium Level 143 mmol/L Potassium Level 4.0 mmol/L Chloride Level 106 mmol/L Carbon Dioxide Level 28 mmol/L Anion Gap 9 Blood Urea Nitrogen 7 mg/dl Creatinine 0.88 mg/dl Est Glomerular Filtrat Rate mL/min > 60 mL/min Glucose Level 94 mg/dl Calcium Level 8.6 mg/dl Total Bilirubin 0.3 mg/dl Direct Bilirubin 0.00 mg/dl Indirect Bilirubin 0.3 mg/dl Aspartate Amino Transf (AST/SGOT) 72 IU/L Alanine Aminotransferase (ALT/SGPT) 78 IU/L Alkaline Phosphatase 65 IU/L Total Protein 7.1 g/dl Albumin 4.0 g/dl Globulin 3.10 g/dl Albumin/Globulin Ratio 1.29 Salicylates Level < 1.0 mg/dl Acetaminophen Level < 10.0 ug/ml Ethyl Alcohol Level 334.0 mg/dl Procedures/MDM Patient was taken to a room, seen and evaluated. Comfort measures were initiated. Diagnostic tests were ordered and reviewed. 3 LEAD RHYTHM STRIP: Normal sinus rhythm without ectopy RADIOLOGY: Reviewed with the radiologist REEVALUATION: 1600: Initial diagnostic tests were appreciated and patient was placed in observation status MEDICAL DECISION MAKIN-year old male presents to the emergency department with an altered mental status. Although the differential diagnosis entertained was broad and potential high acuity, the patient has no indications of significant trauma and instead appears to be significantly intoxicated. At this time the patient will be placed into observation and reevaluated when sober. Departure Diagnosis: Primary Impression: Alcoholic intoxication Additional Impression: Facial abrasion Condition: Fair (ER observation) CELIO OBRIEN Apr 09, 2019 16:09
[2019-04-09 20:43] VITALS: BP 106/81; PULSE 84; RESP 16
== END 2019-04-09 23:42 | disposition home or self-care (01) ==
LOC: EDUNIT# 14:21 → E/R 14:21
DX: F10.129 Alcohol abuse with intoxication, unspecified (principal); R40.2142 Coma scale, eyes open, spontaneous, at arrival to emergency department; R40.2342 Coma scale, best motor response, flexion withdrawal, at arrival to emergency department; R40.2242 Coma scale, best verbal response, confused conversation, at arrival to emergency department; S00.81XA Abrasion of other part of head, initial encounter; X58.XXXA Exposure to other specified factors, initial encounter; Y92.9 Unspecified place or not applicable
CPT/HCPCS: 36415; 70450; 80053; 80307; 85025

== ENCOUNTER 2019-04-11 02:17 | Emergency (ER) | payer OTHER ==
[~2019-04-11] VITALS: Ht 162.6 cm; Wt 60.0 kg
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
[2019-04-11 02:33] VITALS: Ht 162.6 cm; Wt 60.0 kg
[2019-04-11 05:37] VITALS: BP 103/75; PULSE 74; RESP 14
== END 2019-04-11 05:40 | disposition home or self-care (01) ==
LOC: E/R 02:17
DX: F10.10 Alcohol abuse, uncomplicated (principal)
CPT/HCPCS: 99282

== ENCOUNTER 2019-04-20 00:53 | Emergency (ER) | payer OTHER ==
[~2019-04-20] VITALS: Ht 170.2 cm; Wt 63.6 kg
[2019-04-20 01:00] VITALS: Ht 170.2 cm; Wt 63.6 kg
[2019-04-20] MEDS ORDERED: SOD CHLORIDE 0.9% 1,000 ML IV STA (01:13)
[2019-04-20] MEDS ORDERED: DEXTROSE 5%-0.45% NACL 500 ML BAG IV ONE (01:30)
[2019-04-20] MEDS ORDERED: THIAMINE 100 MG TAB PO ONE (01:30)
[2019-04-20] MEDS ORDERED: DIAZEPAM 5 MG/ML SYG IV ONE (01:30)
[2019-04-20] MEDS ORDERED: FOLIC ACID 1 MG TAB PO ONE (01:30)
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
[2019-04-20] MEDS ORDERED: LORAZEPAM 1 MG TAB PO ONE (10:30)
[2019-04-20 11:13] VITALS: BP 109/78; PULSE 89; RESP 20
== END 2019-04-20 11:16 | disposition home or self-care (01) ==
LOC: E/R 00:53
DX: F10.230 Alcohol dependence with withdrawal, uncomplicated (principal); E86.0 Dehydration; S09.90XA Unspecified injury of head, initial encounter; R51 Headache; R07.9 Chest pain, unspecified; Y08.89XA Assault by other specified means, initial encounter
CPT/HCPCS: 70450; 70486; 71045; 80048; 85025; 85610; 85730; J3360; J7030; Z7610; 36415; 96361; 96374; 96375

== ENCOUNTER 2019-04-21 11:43 | Inpatient (IN) | payer OTHER ==
[~2019-04-21] VITALS: Ht 180.3 cm; Wt 60.0 kg
[~2019-04-21 11:43] MED LIST changes: +FOLI-49 PO; +MULTI PO; +THIA100T75 PO
[2019-04-21 11:48] VITALS: Ht 180.3 cm; Wt 60.0 kg
[2019-04-21] MEDS ORDERED: SOD CHLORIDE 0.9% 1,000 ML IV STA (12:05)
[2019-04-21] MEDS ORDERED: DIAZEPAM 5 MG/ML SYG IV ONE (13:30)
--- NOTE | 2019-04-21 14:36 | ERD ---
ER Documentation Chief Complaint Chief Complaint Fall after drinking c/o neck pain HPI Patient is a 59-year-old male with a history of alcohol abuse who presents by ambulance. Please note the history and physical exam is limited secondary to the patient's mental status. The patient was brought in by ambulance. He says "I got all messed up". He fell. Upon review of old medical records this is the patient's eighth visit to the ER since March 26, 2019. Review of the emergency department information exchange system shows visits to 6 separate emergency departments for a total of 21 visits over the past 1 year. He does have a care plan as well which describes presentations very similar to the presentation today. ROS All systems reviewed and are negative except as per history of present illness. Medications Home Meds Active Scripts Bacitracin* (Bacitracin Zinc Oint*) 28.35 Gm Oint, 1 APPLIC TOP BID for 10 Days, TUB APPLI TO Prov:ANT COE MD 04/07/19 Cephalexin* (Keflex*) 500 Mg Capsule, 500 MG PO QID for 7 Days, CAP Prov:ANT COE MD 04/07/19 Allergies Allergies: Coded Allergies: No Known Drug Allergies (Verified Allergy, Unknown, 04/09/19) PMhx/Soc History of Surgery: Yes (LUNG SX, HEART SX, HEAD SX) Anesthesia Reaction: No Hx Neurological Disorder: No Hx Respiratory Disorders: Yes Hx Cardiac Disorders: Yes Hx Psychiatric Problems: Yes (DEPRESSION) Hx Miscellaneous Medical Probl: No Hx Alcohol Use: Yes (DRINKING TODAY) Hx Substance Use: No (DENIES) Hx Tobacco Use: No (DENIES) Smoking Status: Never smoker FmHx Unable to obtain Physical Exam Vitals Vital Signs Date Temp Pulse Resp B/P (MAP) Pulse Ox O2 O2 Flow FiO2 Time Delivery Rate 04/21/19 92 20 104/75 97 Room Air 13:54 (85) 04/21/19 98.2 104 18 101/64 94 11:48 (76) Physical Exam Const: No acute distress Head: Multiple scabs and hematoma to the left posterior scalp Eyes: Normal Conjunctiva ENT: Normal External Ears, Nose and Mouth. Neck: Full range of motion. No meningismus. Resp: Clear to auscultation bilaterally Cardio: Regular rate and rhythm, no murmurs Abd: Soft, non tender, non distended. Normal bowel sounds Skin: No petechiae or rashes Back: No midline or flank tenderness Ext: No cyanosis, or edema Neur: Awake but altered and likely intoxicated Result Diagram: 04/21/19 1302 Results 24 hrs Laboratory Tests Test 04/21/19 13:02 04/21/19 13:19 Prothrombin Time 13.9 Sec Prothrombin Time Ratio 1.1 INR International Normalized Ratio 1.06 Activated Partial Thromboplast Time 21.7 Sec Sodium Level 130 mmol/L Potassium Level 3.9 mmol/L Chloride Level 98 mmol/L Carbon Dioxide Level 21 mmol/L Anion Gap 11 Blood Urea Nitrogen 4 mg/dl Creatinine 0.69 mg/dl Est Glomerular Filtrat Rate mL/min > 60 mL/min Glucose Level 85 mg/dl Calcium Level 8.1 mg/dl Troponin I < 0.012 ng/ml Ethyl Alcohol Level 203.0 mg/dl White Blood Count Pending Red Blood Count Pending Hemoglobin Pending Hematocrit Pending Mean Corpuscular Volume Pending Mean Corpuscular Hemoglobin Pending Mean Corpuscular Hemoglobin Concent Pending Red Cell Distribution Width Pending Platelet Count Pending Mean Platelet Volume Pending Current Medications Medications Dose Sig/Maine Start Time Status Last (Trade) Ordered Route PRN Stop Time Admin Dose Reason Admin Sodium 1,000 ml @ Q1H STAT 04/21/19 DC 04/21/19 Chloride 1,000 mls/hr IV 12:05 12:53 04/21/19 13:04 Diazepam 10 mg ONCE ONCE 04/21/19 DC 04/21/19 (Valium) IV 13:30 13:43 04/21/19 13:31 Procedures/MDM CT brain read by radiology. CT cervical spine read by radiology. Patient is a 59-year-old male who presents with acute alcohol intoxication and acute encephalopathy. The patient was brought in because of a fall. CT head and cervical spine shows no sign of serious traumatic injury. Laboratory studies show mild hyponatremia but otherwise unremarkable. The patient will be signed out to the oncoming physician for final disposition but I believe once he is awake and no longer intoxicated he would be able to be discharged. The patient was given Valium 10 mg IV to prevent seizures or withdrawal. Cervical collar was removed after the cervical spine CT did not show sign of fracture. Critical Care: Time: 35 minutes excluding all billable procedures. Treatments/Evaluations: Close monitoring and treatment of unstable vital signs, cardiorespiratory, and neurologic status, while maintaining tight balance of fluid, respiratory, and cardiac interventions. Departure Diagnosis: Primary Impression: Fall Encounter type: initial encounter Qualified Codes: W19.XXXA - Unspecified fall, initial encounter Additional Impressions: Alcoholic intoxication Complication of substance-induced condition: with delirium Qualified Codes: F10.921 - Alcohol use, unspecified with intoxication delirium Acute encephalopathy Condition: Fair Patient Instructions: Alcohol Intoxication, Fall, Mechanical Referrals: [facility] YOU HAVE RECEIVED A MEDICAL SCREENING EXAM AND THE RESULTS INDICATE THAT YOU DO NOT HAVE A CONDITION THAT REQUIRES URGENT TREATMENT IN THE EMERGENCY DEPARTMENT. FURTHER EVALUATION AND TREATMENT OF YOUR CONDITION CAN WAIT UNTIL YOU ARE SEEN IN YOUR DOCTORS OFFICE WITHIN THE NEXT 1-2 DAYS. IT IS YOUR RESPONSIBILITY TO MAKE AN APPOINTMENT FOR FOLOW-UP CARE. IF YOU HAVE A PRIMARY DOCTOR --you should call your primary doctor and schedule an appointment IF YOU DO NOT HAVE A PRIMARY DOCTOR YOU CAN CALL OUR PHYSICIAN REFERRAL HOTLINE AT IF YOU CAN NOT AFFORD TO SEE A PHYSICIAN YOU CAN CHOSE FROM THE FOLLOWING [facility] [address] [facility]. [facility] [address] [facility] [facility] [address] [facility]. [facility] [address] [facility]. [facility] [address] [facility] [facility]. [address] Additional Instructions: Call your primary care doctor TOMORROW for an appointment during the next 1 WEEK.Tell the workers compensation legal secretary that you were referred from this facility.See the doctor sooner or return here if your condition worsens before your appointment time. JAMSHID JOSHUA MD Apr 21, 2019 14:36
[2019-04-22] MEDS ORDERED: ACETAMINOPHEN 325 MG TAB PO PRN (07:00)
[2019-04-22] MEDS ORDERED: ONDANSETRON 4 MG INJ IV PRN ×2 (07:00→12:30)
[2019-04-22 11:20] VITALS: BP 131/73; PULSE 85; RESP 20
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
[2019-04-22] MEDS ORDERED: NACL 0.9% 3 ML SYG IV SCH (12:30)
[2019-04-22] MEDS: SOD CHLORIDE 0.9% 1,000 ML IV SCH ×2 (14:09→20:25)
[2019-04-22] MEDS: LORAZEPAM 2 MG INJ IV PRN ×2 (14:10→23:45)
[2019-04-22] MEDS: MULTIVITAMINS 10 ML, THIAMINE 100 MG, FOLIC ACID 1 MG in SOD CHLORIDE 0.9% 1,000 ML IVPB SCH (14:10)
[2019-04-22] MEDS: CHLORDIAZEPOXIDE 25 MG CAP PO SCH ×2 (14:10→20:14)
[2019-04-22 15:27] VITALS: BP 110/65; PULSE 88; RESP 20
[2019-04-22] MEDS: ACETAMINOPHEN 325 MG TAB PO PRN (20:14)
[2019-04-22 20:16] VITALS: BP 112/73; PULSE 90; RESP 18
[2019-04-23] MEDS ORDERED: traMADol-APAP 37.5-325 1 TAB PO PRN
[2019-04-23] MEDS: traMADol 50 MG TAB PO PRN ×3 (00:30→21:17)
[2019-04-23 00:35] VITALS: BP 113/72; PULSE 73; RESP 18
[2019-04-23 04:14] VITALS: BP 124/76; PULSE 75; RESP 18
[2019-04-23] MEDS: SOD CHLORIDE 0.9% 1,000 ML IV SCH ×3 (04:25→20:25)
[2019-04-23 07:35] VITALS: BP 121/81; PULSE 76; RESP 16
[2019-04-23] MEDS: MULTIVITAMINS 10 ML, THIAMINE 100 MG, FOLIC ACID 1 MG in SOD CHLORIDE 0.9% 1,000 ML IVPB SCH (09:12)
[2019-04-23] MEDS: CHLORDIAZEPOXIDE 25 MG CAP PO SCH ×3 (09:12→20:27)
--- NOTE | 2019-04-23 09:45 | PN ---
Date/Time of Note Date/Time of Note DATE: 04/23/19 TIME: 09:43 Assessment/Plan VTE Prophylaxis Risk score (from Ns)>0 risk: 1 SCD applied (from Nsg): Yes Pharmacological prophylaxis: NA/contraindicated Pharm contraindication: low risk/ambulating Lines/Catheters IV C[facility]ter Type (from [facility]): Peripheral IV Urinary Cath still in place: No Assessment/Plan Hospital Course SUBJECTIVE:Had tremors yesterday. OBJECTIVE: Vital signs-see below PHYSICAL EXAM: Constitutional: Disheveled male,not in acute distress. HEENT: Head atraumatic and normocephalic. Eyes: Extraocular muscles intact. Anicteric sclerae. Pupils equal bilaterally, reactive to light. NECK: Supple without lymph node. CHEST: Clear and good breath sounds equally. No wheezing. No rhonchi. HEART: S1, S2. Regular rate and rhythm. ABDOMEN: Soft/non tender with no rebound tenderness. Bowel sounds were present. EXTREMITIES: Poor hygiene w/dried skin/eschars on toe wedges. +Tremors zohreh hands. no cyanosis, clubbing or edema. NEUROLOGIC: Alert and oriented x3. No focal deficit. No sensory deficit. PSYCHOSOCIAL: No signs of depression. INTEGUMENTARY: No open wounds. ASSESSMENT AND PLAN:59 yo M w/ EtOH abuse, smoker, homeless, depressive disorders, admitted with altered mental status/alcohol intoxication. Alcohol intoxication/DTs -cont. withdrawal protocol/banana bag/Librium taper dose/PRN Ativan -Cessation advised -floorworker follow-up Alcoholic encephalopathy -Mentation back to normal. Continue to monitor Hyponatremia, likely EtOH induced -Resolved -cont.gentle hydration Chronic anemia -Stable H&H. Monitor Homelessness -floorworker follow-up, has no concerns for disposition and opted to be discharged back to the streets. Chronic back pain -stable Depressive disorders -Currently not having any depressive affect/suicidal ideations -Ordered. DVT prophylaxis: SCDs Dispo:Had tremors yesterday. Cont.present care and dc planning in AM. Patient was seen in collaboration with Dr. Kim. Result Diagram: 04/23/1922 04/23/19521 Results 24hrs Laboratory Tests Test 04/23/19 03:30 04/23/19 05:22 Urine Opiates Screen Negative Urine Barbiturates Negative Urine Amphetamines Screen Negative Urine Benzodiazepines Screen Positive Urine Cocaine Screen Negative Urine Cannabinoids Negative White Blood Count 11.2 #H Red Blood Count 3.07 L Hemoglobin 10.1 L Hematocrit 30.2 L Mean Corpuscular Volume 98.4 Mean Corpuscular Hemoglobin 32.9 Mean Corpuscular Hemoglobin Concent 33.4 Red Cell Distribution Width 13.7 Platelet Count 105 L Mean Platelet Volume 9.6 Immature Granulocytes % 0.800 H Neutrophils % 72.2 Lymphocytes % 10.5 L Monocytes % 14.8 H Eosinophils % 1.5 Basophils % 0.2 Nucleated Red Blood Cells % 0.0 Immature Granulocytes # 0.090 H Neutrophils # 8.1 H Lymphocytes # 1.2 Monocytes # 1.7 H Eosinophils # 0.2 Basophils # 0.0 Nucleated Red Blood Cells # 0.0 Sodium Level 135 Potassium Level 3.8 Chloride Level 102 Carbon Dioxide Level 25 Anion Gap 8 Blood Urea Nitrogen 15 # Creatinine 0.66 Est Glomerular Filtrat Rate mL/min > 60 Glucose Level 100 Hemoglobin A1c 4.9 Calcium Level 8.2 L Phosphorus Level 3.2 Magnesium Level 1.8 Total Bilirubin 0.9 Direct Bilirubin 0.00 Indirect Bilirubin 0.9 Aspartate Amino Transf (AST/SGOT) 42 Alanine Aminotransferase (ALT/SGPT) 45 Alkaline Phosphatase 62 Total Protein 5.9 L Albumin 3.3 Globulin 2.60 Albumin/Globulin Ratio 1.26 Triglycerides Level 47 Cholesterol Level 95 L LDL Cholesterol, Calculated 40 HDL Cholesterol 46 Cholesterol/HDL Ratio 2.0 Exam/Review of Systems Exam Vitals Vital Signs Date Temp Pulse Resp B/P (MAP) Pulse Ox O2 O2 Flow FiO2 Time Delivery Rate 04/23/19 97.9 76 16 121/81 96 07:35 (94) 04/22/19 Room Air 09:30 Intake and Output 04/22/19 04/22/19 04/23/19 1515:00 23:00 07:00 IntakeIntake Total 650 ml 1311.2 ml OutputOutput Total 950 ml 600 ml BalanceBalance -300 ml 711.2 ml Results Results 24hrs Laboratory Tests Test 04/23/19 03:30 04/23/19 05:22 Urine Opiates Screen Negative Urine Barbiturates Negative Urine Amphetamines Screen Negative Urine Benzodiazepines Screen Positive Urine Cocaine Screen Negative Urine Cannabinoids Negative White Blood Count 11.2 #H Red Blood Count 3.07 L Hemoglobin 10.1 L Hematocrit 30.2 L Mean Corpuscular Volume 98.4 Mean Corpuscular Hemoglobin 32.9 Mean Corpuscular Hemoglobin Concent 33.4 Red Cell Distribution Width 13.7 Platelet Count 105 L Mean Platelet Volume 9.6 Immature Granulocytes % 0.800 H Neutrophils % 72.2 Lymphocytes % 10.5 L Monocytes % 14.8 H Eosinophils % 1.5 Basophils % 0.2 Nucleated Red Blood Cells % 0.0 Immature Granulocytes # 0.090 H Neutrophils # 8.1 H Lymphocytes # 1.2 Monocytes # 1.7 H Eosinophils # 0.2 Basophils # 0.0 Nucleated Red Blood Cells # 0.0 Sodium Level 135 Potassium Level 3.8 Chloride Level 102 Carbon Dioxide Level 25 Anion Gap 8 Blood Urea Nitrogen 15 # Creatinine 0.66 Est Glomerular Filtrat Rate mL/min > 60 Glucose Level 100 Hemoglobin A1c 4.9 Calcium Level 8.2 L Phosphorus Level 3.2 Magnesium Level 1.8 Total Bilirubin 0.9 Direct Bilirubin 0.00 Indirect Bilirubin 0.9 Aspartate Amino Transf (AST/SGOT) 42 Alanine Aminotransferase (ALT/SGPT) 45 Alkaline Phosphatase 62 Total Protein 5.9 L Albumin 3.3 Globulin 2.60 Albumin/Globulin Ratio 1.26 Triglycerides Level 47 Cholesterol Level 95 L LDL Cholesterol, Calculated 40 HDL Cholesterol 46 Cholesterol/HDL Ratio 2.0 Medications Medication Current Medications Sodium Chloride 1,000 ml @ 125 mls/hr Q8H IV Last administered on 04/22/19at 14:09; Admin Dose 125 MLS/HR; Start 04/22/19 at 12:25 IV Flush (NS 3 ml) 3 ml PER PROTOCOL IV ; Start 04/22/19 at 12:30 Ondansetron HCl (Zofran Inj) 4 mg Q6H PRN IV NAUSEA/VOMITING; Start 04/22/19 at 12:30 Acetaminophen (Tylenol Tab) 650 mg Q6H PRN PO .PAIN 1-3 OR TEMP Last administered on 04/22/19at 20:14; Admin Dose 650 MG; Start 04/22/19 at 12:30 Multivitamins 10 ml/Thiamine HCl 100 mg/Folic Acid 1 mg/Sodium Chloride 1,011.2 ml @ 125 mls/ hr DAILY@09 IVPB Last administered on 04/23/19at 09:12; Admin Dose 125 MLS/HR; Start 04/22/19 at 13:30 Lorazepam (Ativan) 1 mg Q2H PRN IV etoh withdrawl Last administered on 04/22/19at 23:45; Admin Dose 1 MG; Start 04/22/19 at 12:30 Chlordiazepoxide (Librium) 50 mg TID PO ; Start 04/23/19 at 13:00; Stop 04/24/19 at 09:01 Chlordiazepoxide (Librium) 25 mg TID PO ; Start 04/24/19 at 13:00; Stop 04/25/19 at 09:01 Tramadol HCl (Ultram) 50 mg Q6H PRN PO MODERATE PAIN LEVEL 4-6 Last administered on 04/23/19at 09:14; Admin Dose 50 MG; Start 04/23/19 at 00:00 SEGUNDO MONTOYA NP Apr 23, 2019 09:45
[2019-04-23 12:00] VITALS: BP 115/70; PULSE 80; RESP 16
[2019-04-23] MEDS: LORAZEPAM 2 MG INJ IV PRN ×2 (15:20→20:27)
[2019-04-23 15:54] VITALS: BP 119/73; PULSE 83; RESP 18
[2019-04-23 20:00] VITALS: BP 124/67; PULSE 78; RESP 19
[2019-04-24] VITALS: BP 118/61; PULSE 81; RESP 22
[2019-04-24] MEDS: LORAZEPAM 2 MG INJ IV PRN ×3 (00:31→21:31)
[2019-04-24] MEDS: ACETAMINOPHEN 325 MG TAB PO PRN ×2 (00:36→21:26)
[2019-04-24] MEDS ORDERED: CHLORDIAZEPOXIDE 25 MG CAP PO ONE (01:30)
[2019-04-24] MEDS ORDERED: DIPHENHYDRAMINE 50 MG INJ IV ONE (02:30)
[2019-04-24] MEDS ORDERED: HALOPERIDOL 5 MG INJ IM ONE (02:30)
[2019-04-24] MEDS: SOD CHLORIDE 0.9% 1,000 ML IV SCH ×3 (03:30→21:32)
[2019-04-24 04:00] VITALS: BP 125/60; PULSE 80; RESP 20
[2019-04-24 07:46] VITALS: BP 122/74; PULSE 90; RESP 18
[2019-04-24] MEDS: CHLORDIAZEPOXIDE 25 MG CAP PO SCH ×3 (09:52→21:26)
[2019-04-24] MEDS: MULTIVITAMINS 10 ML, THIAMINE 100 MG, FOLIC ACID 1 MG in SOD CHLORIDE 0.9% 1,000 ML IVPB SCH (09:52)
--- NOTE | 2019-04-24 10:35 | PN ---
Date/Time of Note Date/Time of Note DATE: 04/24/19 TIME: 10:32 Assessment/Plan VTE Prophylaxis Risk score (from Nsg)>0 risk: 4 SCD applied (from Nsg): Yes Pharmacological prophylaxis: NA/contraindicated Pharm contraindication: low risk/ambulating Lines/Catheters IV Catheter Type (from Nrsg): Mid Line Urinary Cath still in place: Yes (CONDOM CATHETER) Reason Cath still needed: other (indicate) Assessment/Plan Hospital Course SUBJECTIVE: Patient with agitation/restlessness/tremors. Received a dose of Haldol with increased dose of Librium. OBJECTIVE: Vital signs-see below PHYSICAL EXAM: Constitutional: Disheveled male,not in acute distress. HEENT: Head atraumatic and normocephalic. Eyes: Extraocular muscles intact. Anicteric sclerae. Pupils equal bilaterally, reactive to light. NECK: Supple without lymph node. CHEST: Clear and good breath sounds equally. No wheezing. No rhonchi. HEART: S1, S2. Regular rate and rhythm. ABDOMEN: Soft/non tender with no rebound tenderness. Bowel sounds were present. EXTREMITIES: Poor hygiene w/dried skin/eschars on toe wedges. +Tremors zohreh hands. no cyanosis, clubbing or edema. NEUROLOGIC: Agitated/restless. No focal deficit. No sensory deficit. PSYCHOSOCIAL: No signs of depression. INTEGUMENTARY: No open wounds. ASSESSMENT AND PLAN:59 yo M w/ EtOH abuse, smoker, homeless, depressive di sorders, admitted with altered mental status/alcohol intoxication. Alcohol intoxication/DTs -cont. withdrawal protocol/banana bag/Librium taper dose/PRN Ativan -Cessation advised -convention worker follow-up Alcoholic encephalopathy -Patient with agitation/restlessness, received a dose of Haldol. Continue withdrawal protocol. Hyponatremia, likely EtOH induced -Resolved Chronic anemia -Stable H&H. Monitor Homelessness -convention worker follow-up, had no concerns for disposition and opted to be di scharged back to the streets. Chronic back pain -stable Depressive disorders -Monitor. No acute issues DVT prophylaxis: SCDs Dispo: Patient still in DTs. Continue monitoring and follow-up withdrawal protocols ordered. Patient was seen in collaboration with Dr. Kim. Result Diagram: 04/23/1952104/23/19521 Exam/Review of Systems Exam Vitals Vital Signs Date Temp Pulse Resp B/P (MAP) Pulse Ox O2 O2 Flow FiO2 Time Delivery Rate 04/24/19 98.8 90 18 122/74 93 07:46 (90) 04/22/19 Room Air 09:30 Intake and Output 04/23/19 04/23/19 04/24/19 1515:00 23:00 07:00 IntakeIntake Total 550 ml OutputOutput Total 600 ml BalanceBalance -50 ml Medications Medication Current Medications Sodium Chloride 1,000 ml @ 125 mls/hr Q8H IV Last administered on 04/24/19 03:30; Admin Dose 125 MLS/HR; Start 04/22/19 at 12:25 IV Flush (NS 3 ml) 3 ml PER PROTOCOL IV ; Start 04/22/19 at 12:30 Ondansetron HCl (Zofran Inj) 4 mg Q6H PRN IV NAUSEA/VOMITING; Start 04/22/19 at 12:30 Acetaminophen (Tylenol Tab) 650 mg Q6H PRN PO .PAIN 1-3 OR TEMP Last administered on 04/24/19at 00:36; Admin Dose 650 MG; Start 04/22/19 at 12:30 Multivitamins 10 ml/Thiamine HCl 100 mg/Folic Acid 1 mg/Sodium Chloride 1,011.2 ml @ 125 mls/ hr DAILY@09 IVPB Last administered on 04/24/19at 09:52; Admin Dose 125 MLS/HR; Start 04/22/19 at 13:30 Lorazepam (Ativan) 1 mg Q2H PRN IV etoh withdrawl Last administered on 04/24/19at 00:31; Admin Dose 1 MG; Start 04/22/19 at 12:30 Tramadol HCl (Ultram) 50 mg Q6H PRN PO MODERATE PAIN LEVEL 4-6 Last administered on 04/23/19 21:17; Admin Dose 50 MG; Start 04/23/19 at 00:00 Chlordiazepoxide (Librium) 100 mg TID PO Last administered on 04/24/19 09:52; Admin Dose 100 MG; Start 04/24/19 at 09:00 SEGUNDO MONTOYA NP Apr 24, 2019 10:35
[2019-04-24] MEDS ORDERED: CHLORDIAZEPOXIDE 25 MG CAP PO SCH (13:00)
[2019-04-24] MEDS: traMADol 50 MG TAB PO PRN (17:16)
[2019-04-24 20:00] VITALS: BP 118/67; PULSE 78; RESP 19
--- NOTE | 2019-04-25 14:39 | DS ---
Date/Time of Note Date/Time of Note DATE: 04/25/19 TIME: 14:33 Discharge Summary Admission/Discharge Info Admit Date/Time Apr 22, 2019 at 06:37 Discharge Date/Time Apr 24, 2019 at 23:10 (AGAINST MEDICAL ADVICE) Discharge Diagnosis Alcohol intoxication/DTs. Hyponatremia, likely EtOH induced.RESOLVED Chronic anemia Homelessness Chronic back pain Depressive disorders Degenerative joint disease of spine Hx of Present Illness This is a 59-year-old male with EtOH abuse, depression, homelessness, brought in by ambulance found him altered on the streets. Currently, patient is alert oriented. He admits heavy drinking yesterday. He denied chest pain, palpitation, shortness of breath, nausea, vomiting, abdominal pain, fever, chills, diarrhea, constipation, or other constitutional symptoms. Labs hemoglobin 9.2, hematocrit 26.6, sodium 130. Otherwise unremarkable. Toxicology positive for alcohol and high concentration. Hospital Course 59 yo M w/ EtOH abuse, smoker, homeless, depressive disorders, admitted with altered mental status/alcohol intoxication. Patient was started on withdrawal protocol/banana bag/Librium taper dose/PRN Ativan. He was found with agitation and non compliance with nursing care.He was counselled on etoh cessation. He is also homeless but didnot have any concern on placement. He was noted w/Etoh related hyponatremia which then normalized. He tolerated activities and diet well. He then found argumentative with hospital staff, removing monitors and wanting to go out to meet with his friends. He then found pulled out monitors and went home AMA Despite our efforts, patient had decided to leave AGAINST MEDICAL ADVICE. Patient has normal mental status and full decisional capacity. Patient understood her condition and the risk of leaving AMA, including but not limited to permanent disability, etc., and had an opportunity to ask questions about own medical condition. The patient has been informed that the paient may return for care anytime and has been referred to primary care provider for follow-up as soon as possible.. Patient was seen in collaboration with Dr. Kim. Home Meds Discontinued Scripts Bacitracin* (Bacitracin Zinc Oint*) 28.35 Gm Oint, 1 APPLIC TOP BID for 10 Days, TUB APPLI TO Prov:ANT COE MD 04/07/19 Cephalexin* (Keflex*) 500 Mg Capsule, 500 MG PO QID for 7 Days, CAP Prov:ANT COE MD 04/07/19 Primary Care Provider Not On Staff Doctor SEGUNDO MONTOYA NP Apr 25, 2019 14:39
== END 2019-04-24 23:10 | disposition left against medical advice (07) | DRG 894 ==
LOC: E/R 11:43 → 6WM 04-22 06:37
PROVIDERS: ADMIT Internal Medicine; ATTEND Internal Medicine
DX: F10.121 Alcohol abuse with intoxication delirium (principal); E87.1 Hypo-osmolality and hyponatremia; G31.2 Degeneration of nervous system due to alcohol; Y90.7 Blood alcohol level of 200-239 mg/100 ml; D64.9 Anemia, unspecified; F32.9 Major depressive disorder, single episode, unspecified; M54.9 Dorsalgia, unspecified; M47.819 Spondylosis without myelopathy or radiculopathy, site unspecified; Z59.0 Homelessness; Z53.21 Procedure and treatment not carried out due to patient leaving prior to being seen by health care provider
CPT/HCPCS: 36415; 70450; 72125; 80048; 80053; 80061; 80307; 82962; 83036; 83735; 84100; 84484; 85025; 85610; 85730; 92610; 93005; 96374; 97162; J1200; J1630; J2060; J3360; J3411; J7030

== ENCOUNTER 2019-04-25 02:37 | Emergency (ER) | payer OTHER ==
[~2019-04-25] VITALS: Ht 170.2 cm; Wt 57.5 kg
[~2019-04-25 02:37] MED LIST changes: -BACI28.34 TOP; -CEPH-443 PO
[2019-04-25] MEDS ORDERED: ONDANSETRON 4 MG INJ IV STA (02:57)
[2019-04-25] MEDS ORDERED: SOD CHLORIDE 0.9% 1,000 ML IV STA (02:57)
--- NOTE | 2019-04-25 02:57 | ERD ---
ER Documentation Chief Complaint Chief Complaint HPI This is a 59-year-old man brought in by EMS for public intoxication, patient adm its to drinking alcohol today and states he is withdrawing. He also has a history of depression but denies suicidal homicidal ideation. Patient denies blood per rectum or melena, no vomiting or diarrhea, no complaints of chest pain or shortness of breath. Patient was transported here by EMS without further complications ROS All systems reviewed and are negative except as per history of present illness. Medications Home Meds Discontinued Scripts Bacitracin* (Bacitracin Zinc Oint*) 28.35 Gm Oint, 1 APPLIC TOP BID for 10 Days, TUB APPLI TO Prov:ANT COE MD 04/07/19 Cephalexin* (Keflex*) 500 Mg Capsule, 500 MG PO QID for 7 Days, CAP Prov:ANT COE MD 04/07/19 Allergies Allergies: Coded Allergies: No Known Drug Allergies (Unverified Allergy, Unknown, 04/25/19) PMhx/Soc depression, anxiety, chronic alcohol abuse, History of Surgery: No Anesthesia Reaction: No Hx Neurological Disorder: No Hx Respiratory Disorders: No Hx Cardiac Disorders: No Hx Psychiatric Problems: Yes (Depression) Hx Miscellaneous Medical Probl: No Hx Alcohol Use: Yes Hx Substance Use: Yes Hx Tobacco Use: Yes FmHx Family History: No diabetes Physical Exam Vitals Vital Signs Date Temp Pulse Resp B/P (MAP) Pulse Ox O2 O2 Flow FiO2 Time Delivery Rate 04/25/19 98.8 108 18 120/83 98 03:58 (95) 04/25/19 97.0 104 16 131/81 97 02:59 (98) Per nurse's records Physical Exam GENERAL: Well-developed, well-nourished, appears dehydrated, and withdrawing. Afebrile HEENT: Dry mucous membranes, pink conjunctiva, no cervical spine tenderness or step-off deformities, no goiter, no jaundice or icterus, extraocular movements intact without pain. No submandibular induration, and no pharyngeal erythema NEURO: Alert and oriented 3, upper and lower extremity tremors, able to answer simple questions and follow simple commands, no focal deficits or facial asymmetry CARDIAC: Tachycardic and regular no murmurs rubs or gallops LUNGS: Clear bilaterally no wheezing crackles or stridor SKIN: Warm and dry to touch, no abrasions, contusions, or hematomas, no lacerations, no ecchymosis, no target lesions, and without ulcers EXTREMITIES: No clubbing cyanosis or edema, calves are bilaterally symmetrical, no Homans sign, no popliteal cord sign. Distal pulses equal and bilateral PSYCH: Irritable and withdrawing Result Diagram: 04/25/19 0311 04/25/19 0308 Results 24 hrs Laboratory Tests Test 04/25/19 03:08 04/25/19 03:11 Sodium Level 135 mmol/L Potassium Level 3.8 mmol/L Chloride Level 101 mmol/L Carbon Dioxide Level 24 mmol/L Anion Gap 10 Blood Urea Nitrogen 13 mg/dl Creatinine 0.77 mg/dl Est Glomerular Filtrat Rate mL/min > 60 mL/min Glucose Level 81 mg/dl Calcium Level 9.3 mg/dl Total Bilirubin 0.4 mg/dl Direct Bilirubin 0.00 mg/dl Indirect Bilirubin 0.4 mg/dl Aspartate Amino Transf (AST/SGOT) 69 IU/L Alanine Aminotransferase (ALT/SGPT) 48 IU/L Alkaline Phosphatase 71 IU/L Troponin I < 0.012 ng/ml Total Protein 6.7 g/dl Albumin 3.6 g/dl Globulin 3.10 g/dl Albumin/Globulin Ratio 1.16 Lipase 138 U/L Ethyl Alcohol Level 63.0 mg/dl White Blood Count 9.9 10^3/ul Red Blood Count 2.84 10^6/ul Hemoglobin 9.4 g/dl Hematocrit 27.9 % Mean Corpuscular Volume 98.2 fl Mean Corpuscular Hemoglobin 33.1 pg Mean Corpuscular Hemoglobin Concent 33.7 g/dl Red Cell Distribution Width 13.5 % Platelet Count 197 10^3/UL Mean Platelet Volume 9.4 fl Immature Granulocytes % 0.700 % Neutrophils % 71.1 % Lymphocytes % 10.6 % Monocytes % 16.5 % Eosinophils % 0.8 % Basophils % 0.3 % Nucleated Red Blood Cells % 0.0 /100WBC Immature Granulocytes # 0.070 10^3/ul Neutrophils # 7.1 10^3/ul Lymphocytes # 1.1 10^3/ul Monocytes # 1.6 10^3/ul Eosinophils # 0.1 10^3/ul Basophils # 0.0 10^3/ul Nucleated Red Blood Cells # 0.0 10^3/ul Current Medications Medications Dose Sig/Maine Start Time Status Last (Trade) Ordered Route PRN Stop Time Admin Dose Reason Admin Lorazepam 2 mg ONCE ONCE 04/25/19 DC 04/25/19 (Ativan) IM 03:00 04/25/19 03:26 03:01 Sodium 1,000 ml @ Q1H STAT 04/25/19 DC 04/25/19 Chloride 1,000 mls/hr IV 02:57 04/25/19 03:26 03:56 Ondansetron 4 mg ONCE STAT 04/25/19 DC 04/25/19 HCl (Zofran IV 02:57 04/25/19 03:26 Inj) 03:03 Haloperidol 5 mg ONCE ONCE 04/25/19 (Haldol) IM 05:00 04/25/19 05:01 Procedures/MDM IV line was established patient was placed on diagnostic cardiac sonographer rhythm strip revealed a narrow complex tachycardia at 110 bpm with upright P and T waves. Patient was afebrile I administered Ativan 2 mg IM x1, normal saline 1 L IV, Zofran 4 mg IV. Chest X-ray 1V Interpreted by me: Soft Tissue: No acute abnormalities Bones: No acute abnormalities Mediastinum/Cardiac Silhouette/Lungs: No acute abnormalities X-ray Pelvis 1V Interpreted by me: Bones: No fracture Joints: No dislocation Foreign body: None CBC and electrolytes are normal, liver function tests are normal, troponin was n egative, ethanol level elevated at 63 although overall patient is in withdrawal. For continued agitation I administered haloperidol 5 mg IM x1 Observation Note: Time: 5 hours Family Hx: No Hypertension Evaluation: Multiple exams showed improving symptoms and no evidence of worsening mental status or hemodynamic instability. Differential diagnoses considered, included but not limited to acute coronary syndrome, pulmonary embolism, aortic dissection, abdominal aortic aneurysm, sepsis, stroke, meningitis, encephalitis, pneumonia, appendicitis, cholecystitis, bowel obstruction, pyelonephritis, nephrolithiasis, cystitis, as well as metabolic, hematologic, and electrolyte abnormalities. As well as abscess, cellulitis, fractures, and dislocations. Patient feels much better at this time, and vital signs are normal, symptoms have improved. I did give strict instructions to return to the ED if symptoms continue or worsen, patient will otherwise follow-up with primary care physician. Patient understood instructions and agreed to plan. Disclaimer: Inadvertent spelling and grammatical errors are likely due to EHR/dictation software use and do not reflect on the overall quality of patient care. Also, please note that the electronic time recorded on this note does not necessarily reflect the actual time of the patient encounter. Departure Diagnosis: Primary Impression: Alcoholic intoxication Complication of substance-induced condition: with delirium Qualified Codes: F10.921 - Alcohol use, unspecified with intoxication delirium Additional Impression: Alcohol withdrawal Complication of substance-induced condition: uncomplicated Qualified Codes: F10.230 - Alcohol dependence with withdrawal, uncomplicated Condition: Stable NIESHA JACKSON MD Apr 25, 2019 02:57
[2019-04-25 02:59] VITALS: Ht 170.2 cm; Wt 57.5 kg
[2019-04-25] MEDS ORDERED: LORAZEPAM 2 MG INJ IM ONE (03:00)
[2019-04-25] MEDS ORDERED: HALOPERIDOL 5 MG INJ IM ONE (05:00)
[2019-04-25 07:23] VITALS: BP 104/67; PULSE 84; RESP 18
== END 2019-04-25 07:25 | disposition home or self-care (01) ==
LOC: E/R 02:37
DX: F10.230 Alcohol dependence with withdrawal, uncomplicated (principal); R40.2142 Coma scale, eyes open, spontaneous, at arrival to emergency department; R40.2362 Coma scale, best motor response, obeys commands, at arrival to emergency department; R40.2252 Coma scale, best verbal response, oriented, at arrival to emergency department; R07.9 Chest pain, unspecified; Z87.891 Personal history of nicotine dependence
CPT/HCPCS: 36415; 71045; 72170; 80053; 80307; 83690; 84484; 85025; 96372; 96374; J1630; J2060; J2405; J7030; Z7502

== ENCOUNTER 2019-04-25 10:10 | Emergency (ER) | payer OTHER ==
[~2019-04-25] VITALS: Ht 160 cm; Wt 70.0 kg
[2019-04-25 10:15] VITALS: Ht 160 cm; Wt 70.0 kg
[2019-04-25] MEDS ORDERED: MAGNESIUM SULFATE 2 GM, MULTIVITAMINS 10 ML, THIAMINE 100 MG, FOLIC ACID 1 MG in SOD CH... IV STA (10:20)
--- NOTE | 2019-04-25 10:28 | ERD ---
ER Documentation Chief Complaint Chief Complaint Alcohol intoxication no injury noted HPI This is a 59-year-old male with a known history of alcohol abuse. The patient is homeless. The patient has had multiple previous emergency room visits for alcohol intoxication. The patient had been seen and evaluated earlier today and was subsequently discharged 3 hours prior to arrival. When he was discharged he stated he ran into an old girlfriend who gave him a bottle of vodka and a white powdery substance. He stated he took the unknown illicit drug and drink half a liter of vodka. He was found sleeping in front of her congregation. A bystander phone 911. EMS stated there was no trauma or drug paraphernalia. The patient denies a headache. He denies any chest pain. He denies any shortness of breath. He denies any suicidal homicidal thoughts or ideations. ROS All systems reviewed and are negative except as per history of present illness. Medications Home Meds Discontinued Scripts Bacitracin* (Bacitracin Zinc Oint*) 28.35 Gm Oint, 1 APPLIC TOP BID for 10 Days, TUB APPLI TO Prov:ANT COE MD 04/07/19 Cephalexin* (Keflex*) 500 Mg Capsule, 500 MG PO QID for 7 Days, CAP Prov:ANT COE MD 04/07/19 Allergies Allergies: Coded Allergies: No Known Drug Allergies (Unverified Allergy, Unknown, 04/25/19) PMhx/Soc History of Surgery: No Anesthesia Reaction: No Hx Neurological Disorder: No Hx Respiratory Disorders: No Hx Cardiac Disorders: No Hx Psychiatric Problems: Yes (Depression) Hx Miscellaneous Medical Probl: No Hx Alcohol Use: Yes Hx Substance Use: Yes Hx Tobacco Use: No Physical Exam Vitals Vital Signs Date Temp Pulse Resp B/P (MAP) Pulse Ox O2 O2 Flow FiO2 Time Delivery Rate 04/25/19 98.1 106 18 104/62 98 10:15 (76) Physical Exam Constitutional:Well-developed. Disheveled HEENT:Normocephalic. Atraumatic with no nasal septal hematoma. No hemotympanum.Pupils were equal round reactive to light. Moist mucous membranes. Poor oral dentition Neck: No nuchal rigidity. No lymphadenopathy. No posterior cervical spine tenderness or step-offs. Respiratory: Not using accessory muscles of respiration.Lungs were clear to auscultation bilaterally. No rhonchi. No rales. No wheezing. Cardiovascular: Regular rate regular rhythm.No murmurs. No rubs were appreciated.S1, S2 normal. Distal pulses are palpable 2+ bilaterally. GI: Abdomen was soft. Nontender. Non Distended. No pulsatile abdominal masses or bruits. No rebound. No guarding. Bowel sounds were present and normal. Muscle skeletal: Full range of motion of both the upper and lower extremities bilaterally.Normal muscle tone.No assymetrical calf tenderness or swelling. Skin: No petechia, no purpura. No lesions on the palms or the soles of the feet. No maculopapular rash. NEURO: Patient was alert, awake, orientated x3.No facial droop. Gait observed and unsteady. Speech was slurred and patient smelled of alcohol. No focal neurological deficits. Results 24 hrs Current Medications Medications Dose Sig/Maine Start Time Status Last (Trade) Ordered Route PRN Stop Time Admin Dose Reason Admin Magnesium 1,015.2 ml Q2H2M STAT 04/25/19 Sulfate 2 @ 500 mls/ IV 10:20 04/25/19 gm/ hr 12:21 Multivitamins 10 ml/Thiamine HCl 100 mg/Folic Acid 1 mg/Sodium Chloride Procedures/MDM This is a 59-year-old male with multiple previous emergency room visits for alcohol intoxication. The patient returned as he was found sleeping on a street with no signs of trauma or drug paraphernalia. On physical exam the patient had no evidence of blunt or penetrating head chest or abdominal trauma. He did appear clinically intoxicated. He received IV access and was given a banana bag to prevent impending delirium tremors. His serum ethanol was elevated. The patient will be seen by the nephrology social worker. He denied any suicidal homicidal thoughts ideations and I did not feel required a psychiatric evaluation at this time. The patient was discharged home in fair condition. They were instructed to return to the emergency department at any time if there was any worsening of their condition. The patient stated they would follow up with their PCP in the next 24-48 hours to initiate a suitable medication regimen under the care of their PCP as well as to allow their PCP to monitor any drug reactions. The eric ent was discharged home with prescriptions after they gave informed consent to the new medication. They were also fully informed by myself on the adverse effects and adverse drug interactions in order to provide adequate safeguards to prevent possible adverse reactions to medications. Departure Diagnosis: Primary Impression: Alcoholic intoxication Complication of substance-induced condition: uncomplicated Qualified Codes: F10.920 - Alcohol use, unspecified with intoxication, uncomplicated Condition: Fair Patient Instructions: Alcohol Intoxication PERICO HARVEY MD Apr 25, 2019 10:28
[2019-04-25] MEDS ORDERED: CHLORDIAZEPOXIDE 25 MG CAP PO ONE (13:30)
--- NOTE | 2019-04-25 14:14 | QN ---
Documentation Comment Patient is now ambulatory, clinically sober and steady on his feet. He is able to navigate the community. He is not a danger to himself or others. He can be safely discharged. NORMA PARHAM MD Apr 25, 2019 14:14
[2019-04-25 14:18] VITALS: BP 133/67; PULSE 87; RESP 20
== END 2019-04-25 14:19 | disposition home or self-care (01) ==
LOC: E/R 10:10
DX: F10.920 Alcohol use, unspecified with intoxication, uncomplicated (principal)
CPT/HCPCS: 80053; 80307; 85025; 85610; 85730; J3411; J3475; J7030; Z7610; 36415; 96374

== ENCOUNTER 2019-04-25 20:36 | Emergency (ER) | payer OTHER ==
[~2019-04-25] VITALS: Ht 170.2 cm; Wt 68.0 kg
[2019-04-25 20:44] VITALS: Ht 170.2 cm; Wt 68.0 kg
--- NOTE | 2019-04-25 23:35 | ERD ---
ER Documentation Chief Complaint Chief Complaint ETOH HOMELESS THIRD VISIT TODAY FOR THE SAME REASON. HPI This is a 59-year-old male who presents to the emergency room for evaluation of bilateral hip pain. The patient states that he has had hip pain for the past 6 months. He denies any recent trauma. The patient has been seen in the emergency room earlier today and was discharged after he was clinically sober. He denies any additional alcohol use since leaving the ER and denies any homicidal suicidal ideation. He came to the ER for evaluation of his chronic hip pain. ROS All systems reviewed and are negative except as per history of present illness. Medications Home Meds Discontinued Scripts Bacitracin* (Bacitracin Zinc Oint*) 28.35 Gm Oint, 1 APPLIC TOP BID for 10 Days, TUB APPLI TO Prov:ANT COE MD 04/07/19 Cephalexin* (Keflex*) 500 Mg Capsule, 500 MG PO QID for 7 Days, CAP Prov:ANT COE MD 04/07/19 Allergies Allergies: Coded Allergies: No Known Drug Allergies (Unverified Allergy, Unknown, 04/25/19) PMhx/Soc History of Surgery: Yes (RIBS,LUNG) Anesthesia Reaction: No Hx Neurological Disorder: No Hx Respiratory Disorders: Yes (HAD A LUNG SURGERY.) Hx Cardiac Disorders: No Hx Psychiatric Problems: No Hx Miscellaneous Medical Probl: No Hx Alcohol Use: Yes Hx Substance Use: No Hx Tobacco Use: Yes Smoking Status: Current every day smoker Physical Exam Vitals Vital Signs Date Temp Pulse Resp B/P (MAP) Pulse Ox O2 O2 Flow FiO2 Time Delivery Rate 04/25/19 99.0 109 20 126/62 95 20:44 (83) Physical Exam Const: Disheveled appearance, no acute distress Head: Atraumatic Eyes: Normal Conjunctiva ENT: Normal External Ears, Nose and Mouth. Neck: Full range of motion. No meningismus. Resp: Clear to auscultation bilaterally Cardio: Regular rate and rhythm, no murmurs Abd: Soft, non tender, non distended. Normal bowel sounds Skin: No petechiae or rashes Back: No midline or flank tenderness Ext: No cyanosis, or edema Neur: Awake and alert Psych: Normal Mood and Affect Procedures/MDM X-ray Pelvis 1V Interpreted by me: Bones: [No fracture] Joints: [No dislocation] Foreign body: [None] This 59-year-old male presents to the ER for evaluation of chronic bilateral hip pain. This patient was seen in the emergency room earlier today and was evaluated for alcohol ingestion. The patient does appear to be under the influence of alcohol and an x-ray was obtained which does not show any acute pathology. The patient is protecting his airway, he is arousable and answering cushions appropriately and will be discharged home when he is clinically sober. Departure Diagnosis: Primary Impression: Alcohol abuse, daily use Additional Impression: Chronic hip pain Condition: Fair HOOD KHAN DO Apr 25, 2019 23:35
[2019-04-26 05:33] VITALS: BP 126/70; PULSE 97; RESP 15
== END 2019-04-26 05:30 | disposition home or self-care (01) ==
LOC: E/R 20:36
DX: F10.10 Alcohol abuse, uncomplicated (principal); M25.551 Pain in right hip; M25.552 Pain in left hip; G89.29 Other chronic pain; F17.210 Nicotine dependence, cigarettes, uncomplicated
CPT/HCPCS: 72170; Z7502

== ENCOUNTER 2019-04-27 21:28 | Inpatient (IN) | payer OTHER ==
[~2019-04-27] VITALS: Ht 170.2 cm; Wt 62.0 kg
[2019-04-28] VITALS (8 sets, daily range): BP systolic 93–142; BP diastolic 51–62; PULSE 61–88; RESP 16–20; Ht 170.2 cm; Wt 62.0 kg
[2019-04-28] MEDS ORDERED: ALBUTEROL/IPRATROPIUM (NEB) 3 ML AMP HHN PRN (02:30)
[2019-04-28] MEDS ORDERED: NACL 0.9% 3 ML SYG IV SCH (02:30)
[2019-04-28] MEDS ORDERED: ONDANSETRON 4 MG INJ IV PRN (02:30)
[2019-04-28] MEDS: SOD CHLORIDE 0.9% 1,000 ML IV SCH ×6 (02:30→22:30)
[2019-04-28] MEDS: PANTOPRAZOLE 40 MG INJ IV SCH (05:34)
--- NOTE | 2019-04-28 06:40 | HP ---
Date/Time of Note Date/Time of Note DATE: 04/28/19 TIME: 06:36 Assessment/Plan VTE Prophylaxis SCD applied (from Nsg): Yes Pharmacological prophylaxis: NA/contraindicated Pharm contraindication: low risk/ambulating Lines/Catheters IV Catheter Type (from Nrsg): Saline Lock Urinary Cath still in place: No Assessment/Plan Assessment/Plan 59-year-old homeless male with a history of alcohol abuse, depression, chronic back pain transferred from outside facility for alcohol intoxication, frequent falls. PLAN -Patient was treated here recently for alcohol withdrawal/DT and left AMA 3 days ago -IV fluid alternating with banana bag -Librium, as needed Ativan -Patient had a head CT at the outside facility which was negative for acute findings -Abstinence from alcohol Result Diagram: 04/28/1948 Results 24hrs Laboratory Tests Test 04/28/19 05:48 White Blood Count 8.2 Red Blood Count 2.63 L Hemoglobin 8.6 L Hematocrit 26.5 L Mean Corpuscular Volume 100.8 Mean Corpuscular Hemoglobin 32.7 Mean Corpuscular Hemoglobin Concent 32.5 Red Cell Distribution Width 14.3 Platelet Count 343 # Mean Platelet Volume 8.8 Immature Granulocytes % 0.900 H Neutrophils % 63.2 Lymphocytes % 14.5 L Monocytes % 19.6 H Eosinophils % 1.3 Basophils % 0.5 Nucleated Red Blood Cells % 0.0 Immature Granulocytes # 0.070 H Neutrophils # 5.2 Lymphocytes # 1.2 Monocytes # 1.6 H Eosinophils # 0.1 Basophils # 0.0 Nucleated Red Blood Cells # 0.0 HPI/ROS Admit Date/Time Admit Date/Time Apr 28, 2019 at 00:56 Hx of Present Illness Patient is a 59-year-old homeless male with a history of alcohol abuse, chronic back pain, depression who initially presented on outside hospital complaining of frequent fall and alcohol intoxication/tremor. Patient was admitted here a few days ago and actually left AMA 3 days ago. At that time he was admitted for alcohol intoxication and withdrawal/DT. Patient has multiple abrasions to frequent fall. At the outside facility head CT was negative for acute findings. His alcohol level was 70, which is the upper limit of normal for transferring facility. Patient was transferred to [facility] for insurance reason. PMH/Family/Social Past Medical History Medical History: other (see hpi) Medications Current Medications Sodium Chloride 1,000 ml @ 100 mls/hr Q10H IV Last administered on 04/28/19at 03:04; Admin Dose 100 MLS/HR; Start 04/28/19 at 02:13 IV Flush (NS 3 ml) 3 ml PER PROTOCOL IV ; Start 04/28/19 at 02:30 Lorazepam (Ativan) 1 mg Q6H PRN IV .ANXIETY; Start 04/28/19 at 02:30 Ondansetron HCl (Zofran Inj) 4 mg Q6H PRN IV NAUSEA/VOMITING; Start 04/28/19 at 02:30 Acetaminophen (Tylenol Tab) 650 mg Q6H PRN PO .PAIN 1-3 OR TEMP; Start 04/28/19 at 02:30 Pantoprazole (Protonix Iv) 40 mg DAILY@06 IV Last administered on 04/28/19at 05:34; Admin Dose 40 MG; Start 04/28/19 at 06:00 Albuterol/ Ipratropium (Duoneb) 3 ml Q2H RESP THERAPY PRN HHN SHORTNESS OF BREATH; Start 04/28/19 at 02:30 Chlordiazepoxide (Librium) 100 mg Q8H PO ; Start 04/28/19 at 09:00 Sodium Chloride 1,000 ml @ 100 mls/hr Q10H IV ; Start 04/28/19 at 02:30 Multivitamins 10 ml/Thiamine HCl 100 mg/Folic Acid 1 mg/Sodium Chloride 1,011.2 ml @ 125 mls/ hr DAILY@09 IVPB ; Start 04/28/19 at 09:00; Stop 05/01/19 at 09:00 Lorazepam (Ativan) 2 mg Q1H PRN IV etoh w/d; Start 04/28/19 at 02:30 Coded Allergies: No Known Drug Allergies (Unverified Allergy, Unknown, 04/25/19) Past Surgical History Past Surgical Hx: other (see hpi) Family History Significant Family History: no pertinent family hx Social History Alcohol Use: heavy Smoking Status: Current every day smoker Drug Use: other Exam/Review of Systems Vital Signs Vitals Vital Signs Date Temp Pulse Resp B/P (MAP) Pulse Ox O2 O2 Flow FiO2 Time Delivery Rate 04/28/19 98.2 71 18 96/51 (39) 91 04:33 04/28/19 Room Air 01:11 Intake and Output 04/27/19 04/27/19 04/28/19 1515:00 23:00 07:00 IntakeIntake Total 330 ml BalanceBalance 330 ml Exam Constitutional: other (NO ACUTE DISTRESS) Head: normocephalic, atraumatic Eyes: PERRL Respiratory: clear to auscultation Cardiovascular: regular rate and rhythm, nl pulses Gastrointestinal: soft Extremities: normal pulses ANDRESSA BALL MD Apr 28, 2019 06:40
[2019-04-28] MEDS: MULTIVITAMINS 10 ML, THIAMINE 100 MG, FOLIC ACID 1 MG in SOD CHLORIDE 0.9% 1,000 ML IVPB SCH (09:20)
[2019-04-28] MEDS: CHLORDIAZEPOXIDE 25 MG CAP PO SCH ×2 (09:20→16:49)
--- NOTE | 2019-04-28 10:39 | PN ---
Date/Time of Note Date/Time of Note DATE: 04/28/19 TIME: 10:37 Assessment/Plan VTE Prophylaxis SCD applied (from Nsg): Yes Pharmacological prophylaxis: NA/contraindicated Pharm contraindication: low risk/ambulating Lines/Catheters IV Catheter Type (from Nrsg): Saline Lock Urinary Cath still in place: No Assessment/Plan Assessment/Plan PLAN -Patient was treated here recently for alcohol withdrawal/DT and left AMA 3 days ago -Banana bag. He is tolerating diet -Librium taper, as needed Ativan -Patient had a head CT at the outside facility which was negative for acute find ings -Abstinence from alcohol -Social work consulted. Result Diagram: 04/28/19 0548 04/28/19 0548 Subjective 24 Hr Interval Summary Free Text/Dictation No acute overnight events. Patient doing well. Tolerating diet. He says he walked with the nurse in the hallway. Exam/Review of Systems Exam Vitals Vital Signs Date Temp Pulse Resp B/P (MAP) Pulse Ox O2 O2 Flow FiO2 Time Delivery Rate 04/28/19 97.6 61 16 104/61 98 Room Air 07:03 (75) Intake and Output 04/27/19 04/27/19 04/28/19 1515:00 23:00 07:00 IntakeIntake Total 330 ml BalanceBalance 330 ml Exam Gen: Dirty appearing man awake and alert in bed. Eyes: PERRL, no icterus HEENT: Moist mucous membranes, clear oropharynx Card: Regular rate and rhythm, no murmurs Pulm: Clear to auscultation bilaterally. Abd: Soft, nontender, nondistended. Ext: No cyanosis/clubbing/edema Neuro: Tongue fasciculations, hand tremor. Results Results 24hrs Laboratory Tests Test 04/28/19 05:48 White Blood Count 8.2 Red Blood Count 2.63 L Hemoglobin 8.6 L Hematocrit 26.5 L Mean Corpuscular Volume 100.8 Mean Corpuscular Hemoglobin 32.7 Mean Corpuscular Hemoglobin Concent 32.5 Red Cell Distribution Width 14.3 Platelet Count 343 # Mean Platelet Volume 8.8 Immature Granulocytes % 0.900 H Neutrophils % 63.2 Lymphocytes % 14.5 L Monocytes % 19.6 H Eosinophils % 1.3 Basophils % 0.5 Nucleated Red Blood Cells % 0.0 Immature Granulocytes # 0.070 H Neutrophils # 5.2 Lymphocytes # 1.2 Monocytes # 1.6 H Eosinophils # 0.1 Basophils # 0.0 Nucleated Red Blood Cells # 0.0 Sodium Level 142 Potassium Level 3.7 Chloride Level 114 H Carbon Dioxide Level 23 Anion Gap 5 Blood Urea Nitrogen 9 Creatinine 0.72 Est Glomerular Filtrat Rate mL/min > 60 Glucose Level 107 Calcium Level 7.3 L Magnesium Level 2.3 Total Bilirubin 0.5 Direct Bilirubin 0.00 Indirect Bilirubin 0.5 Aspartate Amino Transf (AST/SGOT) 92 H Alanine Aminotransferase (ALT/SGPT) 67 Alkaline Phosphatase 49 Total Protein 5.3 L Albumin 2.6 L Globulin 2.70 Albumin/Globulin Ratio 0.96 Medications Medication Current Medications Sodium Chloride 1,000 ml @ 100 mls/hr Q10H IV Last administered on 04/28/19at 03:04; Admin Dose 100 MLS/HR; Start 04/28/19 at 02:13 IV Flush (NS 3 ml) 3 ml PER PROTOCOL IV ; Start 04/28/19 at 02:30 Lorazepam (Ativan) 1 mg Q6H PRN IV .ANXIETY; Start 04/28/19 at 02:30 Ondansetron HCl (Zofran Inj) 4 mg Q6H PRN IV NAUSEA/VOMITING; Start 04/28/19 at 02:30 Acetaminophen (Tylenol Tab) 650 mg Q6H PRN PO .PAIN 1-3 OR TEMP; Start 04/28/19 at 02:30 Pantoprazole (Protonix Iv) 40 mg DAILY@06 IV Last administered on 04/28/19at 05:34; Admin Dose 40 MG; Start 04/28/19 at 06:00 Albuterol/ Ipratropium (Duoneb) 3 ml Q2H RESP THERAPY PRN HHN SHORTNESS OF BREATH; Start 04/28/19 at 02:30 Chlordiazepoxide (Librium) 100 mg Q8H PO Last administered on 04/28/19at 09:20; Admin Dose 100 MG; Start 04/28/19 at 09:00 Sodium Chloride 1,000 ml @ 100 mls/hr Q10H IV ; Start 04/28/19 at 02:30 Multivitamins 10 ml/Thiamine HCl 100 mg/Folic Acid 1 mg/Sodium Chloride 1,011.2 ml @ 125 mls/ hr DAILY@09 IVPB Last administered on 04/28/19at 09:20; Admin Dose 125 MLS/HR; Start 04/28/19 at 09:00; Stop 05/01/19 at 09:00 Lorazepam (Ativan) 2 mg Q1H PRN IV etoh w/d; Start 04/28/19 at 02:30 RUI KELLEY MD Apr 28, 2019 10:39
[2019-04-28] MEDS: ACETAMINOPHEN 325 MG TAB PO PRN ×2 (14:04→21:41)
[2019-04-28] MEDS: LORAZEPAM 2 MG INJ IV PRN (23:35)
[2019-04-29] MEDS: CHLORDIAZEPOXIDE 25 MG CAP PO SCH ×3 (01:03→16:56)
[2019-04-29 04:36] VITALS: BP 101/54; PULSE 74; RESP 16
[2019-04-29] MEDS: SOD CHLORIDE 0.9% 1,000 ML IV SCH ×5 (05:57→18:02)
[2019-04-29] MEDS: PANTOPRAZOLE 40 MG INJ IV SCH (06:04)
[2019-04-29 07:31] VITALS: BP 118/72; PULSE 93; RESP 19
[2019-04-29] MEDS: MULTIVITAMINS 10 ML, THIAMINE 100 MG, FOLIC ACID 1 MG in SOD CHLORIDE 0.9% 1,000 ML IVPB SCH (09:16)
[2019-04-29 11:11] VITALS: BP 142/67; PULSE 78; RESP 19
--- NOTE | 2019-04-29 11:41 | PN ---
Date/Time of Note Date/Time of Note DATE: 04/29/19 TIME: 11:38 Assessment/Plan VTE Prophylaxis Risk score (from Ns)>0 risk: 2 SCD applied (from Ns): Yes Pharmacological prophylaxis: NA/contraindicated Pharm contraindication: low risk/ambulating Lines/Catheters IV Catheter Type (from Nrs): Peripheral IV Urinary Cath still in place: No Assessment/Plan Assessment/Plan PLAN -Patient was treated here recently for alcohol withdrawal/DT and left AMA 3 days ago -Banana bag. He is tolerating diet -Librium taper, as needed Ativan -Patient had a head CT at the outside facility which was negative for acute findings -Abstinence from alcohol -Social work consulted for placement. -Will order PT also Result Diagram: 04/29/1952304/29/19523 Subjective 24 Hr Interval Summary Free Text/Dictation No acute overnight events. Required Ativan x1 last night. This morning patient doing well. He does not have suicidal or homicidal ideation. He denies history of mental disorders requiring inpatient care or medical treatment. Exam/Review of Systems Exam Vitals Vital Signs Date Temp Pulse Resp B/P (MAP) Pulse Ox O2 O2 Flow FiO2 Time Delivery Rate 04/29/19 98.8 78 19 142/67 95 11:11 (92) 04/29/19 21 02:20 04/28/19 Room Air 16:07 Intake and Output 04/28/19 04/28/19 04/29/19 1515:00 23:00 07:00 IntakeIntake Total 360 ml 400 ml 1300 ml OutputOutput Total 500 ml 550 ml 275 ml BalanceBalance -140 ml -150 ml 1025 ml Exam Gen: Dirty appearing man awake and alert in bed. Eyes: PERRL, no icterus HEENT: Moist mucous membranes, clear oropharynx Card: Regular rate and rhythm, no murmurs Pulm: Clear to auscultation bilaterally. Abd: Soft, nontender, nondistended. Ext: No cyanosis/clubbing/edema Neuro: Tongue fasciculations, hand tremor. Results Results 24hrs Laboratory Tests Test 04/29/19 05:24 White Blood Count 7.1 Red Blood Count 2.65 L Hemoglobin 8.6 L Hematocrit 26.9 L Mean Corpuscular Volume 101.5 H Mean Corpuscular Hemoglobin 32.5 Mean Corpuscular Hemoglobin Concent 32.0 Red Cell Distribution Width 13.8 Platelet Count 325 Mean Platelet Volume 9.0 Immature Granulocytes % 0.800 H Neutrophils % 60.0 Lymphocytes % 19.9 Monocytes % 15.0 H Eosinophils % 3.7 Basophils % 0.6 Nucleated Red Blood Cells % 0.0 Immature Granulocytes # 0.060 H Neutrophils # 4.3 Lymphocytes # 1.4 Monocytes # 1.1 H Eosinophils # 0.3 Basophils # 0.0 Nucleated Red Blood Cells # 0.0 Sodium Level 137 Potassium Level 4.1 Chloride Level 110 Carbon Dioxide Level 24 Anion Gap 3 L Blood Urea Nitrogen 9 Creatinine 0.78 Est Glomerular Filtrat Rate mL/min > 60 Glucose Level 95 Calcium Level 8.0 L Phosphorus Level 2.9 Magnesium Level 1.7 Medications Medication Current Medications Sodium Chloride 1,000 ml @ 100 mls/hr Q10H IV Last administered on 04/29/19 09:15; Admin Dose 100 MLS/HR; Start 04/28/19 at 02:13 IV Flush (NS 3 ml) 3 ml PER PROTOCOL IV ; Start 04/28/19 at 02:30 Lorazepam (Ativan) 1 mg Q6H PRN IV .ANXIETY Last administered on 04/28/19 23:3 5; Admin Dose 1 MG; Start 04/28/19 at 02:30 Ondansetron HCl (Zofran Inj) 4 mg Q6H PRN IV NAUSEA/VOMITING; Start 04/28/19 at 02:30 Acetaminophen (Tylenol Tab) 650 mg Q6H PRN PO .PAIN 1-3 OR TEMP Last a dministered on 04/28/19at 21:41; Admin Dose 650 MG; Start 04/28/19 at 02:30 Pantoprazole (Protonix Iv) 40 mg DAILY@06 IV Last administered on 04/29/19 06:04; Admin Dose 40 MG; Start 04/28/19 at 06:00 Albuterol/ Ipratropium (Duoneb) 3 ml Q2H RESP THERAPY PRN HHN SHORTNESS OF BREATH; Start 04/28/19 at 02:30 Chlordiazepoxide (Librium) 100 mg Q8H PO Last administered on 04/29/19at 10:36; Admin Dose 100 MG; Start 04/28/19 at 09:00 Sodium Chloride 1,000 ml @ 100 mls/hr Q10H IV Last administered on 04/28/19at 19:21; Admin Dose 100 MLS/HR; Start 04/28/19 at 02:30 Multivitamins 10 ml/Thiamine HCl 100 mg/Folic Acid 1 mg/Sodium Chloride 1,011.2 ml @ 125 mls/ hr DAILY@09 IVPB Last administered on 04/29/19at 09:16; Admin Dose 125 MLS/HR; Start 04/28/19 at 09:00; Stop 05/01/19 at 09:00 Lorazepam (Ativan) 2 mg Q1H PRN IV etoh w/d; Start 04/28/19 at 02:30 RUI KELLEY MD Apr 29, 2019 11:41
[2019-04-29 15:29] VITALS: BP 151/65; PULSE 70; RESP 20
[2019-04-29] MEDS: LORAZEPAM 2 MG INJ IV PRN (18:02)
[2019-04-29] MEDS: ACETAMINOPHEN 325 MG TAB PO PRN (19:54)
[2019-04-29 20:10] VITALS: BP 121/78; PULSE 70; RESP 18
[2019-04-30 00:17] VITALS: BP 130/65; PULSE 76; RESP 18
[2019-04-30] MEDS: CHLORDIAZEPOXIDE 25 MG CAP PO SCH ×2 (01:08→08:38)
[2019-04-30] MEDS: SOD CHLORIDE 0.9% 1,000 ML IV SCH ×3 (04:13→07:27)
[2019-04-30 04:14] VITALS: BP 125/78; PULSE 78; RESP 18
[2019-04-30] MEDS: PANTOPRAZOLE 40 MG INJ IV SCH (06:54)
[2019-04-30 07:35] VITALS: BP 112/69; PULSE 75; RESP 20
[2019-04-30] MEDS: MULTIVITAMINS 10 ML, THIAMINE 100 MG, FOLIC ACID 1 MG in SOD CHLORIDE 0.9% 1,000 ML IVPB SCH (08:38)
[2019-04-30] MEDS: LORAZEPAM 2 MG INJ IV PRN ×2 (08:38→23:47)
[2019-04-30 10:54] VITALS: BP 129/79; PULSE 66; RESP 20
--- NOTE | 2019-04-30 11:22 | PN ---
Date/Time of Note Date/Time of Note DATE: 04/30/19 TIME: 11:20 Assessment/Plan VTE Prophylaxis Risk score (from Ns)>0 risk: 2 SCD applied (from Ns): No SCD contraindicated: low risk/ambulating Pharmacological prophylaxis: NA/contraindicated Pharm contraindication: low risk/ambulating Lines/Catheters IV [facility]from [facility] Saline Lock Urinary Cath still in place: No Assessment/Plan Assessment/Plan PLAN -Patient was treated here recently for alcohol withdrawal/DT and left AMA. -No more IV fluids. -Librium tapered off today; will monitor closely for evidence of withdrawal. -Patient had a head CT at the outside facility which was negative for acute findings -Abstinence from alcohol -Social work consulted for placement. Tentative plan for recuperative care. -Will order PT also Dispo: Likely discharge in 24-48 hours depending on how he does off benzodiazepines. Result Diagram: 04/29/1952304/29/19523 Subjective 24 Hr Interval Summary Free Text/Dictation No acute overnight events. The patient is up ambulating independently, although he does seem unsteady. Exam/Review of Systems Exam Vitals Vital Signs Date Temp Pulse Resp B/P (MAP) Pulse Ox O2 O2 Flow FiO2 Time Delivery Rate 04/30/19 98.0 66 20 129/79 92 10:54 (96) 04/29/19 21 02:20 04/28/19 Room Air 16:07 Intake and Output 04/29/19 04/29/19 04/30/19 1515:00 23:00 07:00 IntakeIntake Total 800 ml 400 ml OutputOutput Total 701 ml 1250 ml 1100 ml BalanceBalance 99 ml -850 ml -1100 ml Exam Gen: Dirty appearing man awake and alert in bed. Eyes: PERRL, no icterus HEENT: Moist mucous membranes, clear oropharynx Card: Regular rate and rhythm, no murmurs Pulm: Clear to auscultation bilaterally. Abd: Soft, nontender, nondistended. Ext: No cyanosis/clubbing/edema Neuro: No tremor or tongue fasciculations today. Medications Medication Current Medications Sodium Chloride 1,000 ml @ 100 mls/hr Q10H IV Last administered on 04/30/19at 07:27; Admin Dose 100 MLS/HR; Start 04/28/19 at 02:13 IV Flush (NS 3 ml) 3 ml PER PROTOCOL IV ; Start 04/28/19 at 02:30 Ondansetron HCl (Zofran Inj) 4 mg Q6H PRN IV NAUSEA/VOMITING; Start 04/28/19 at 02:30 Acetaminophen (Tylenol Tab) 650 mg Q6H PRN PO .PAIN 1-3 OR TEMP Last administered on 04/29/19at 19:54; Admin Dose 650 MG; Start 04/28/19 at 02:30 Pantoprazole (Protonix Iv) 40 mg DAILY@06 IV Last administered on 04/30/19at 06:54; Admin Dose 40 MG; Start 04/28/19 at 06:00 Albuterol/ Ipratropium (Duoneb) 3 ml Q2H RESP THERAPY PRN HHN SHORTNESS OF BREATH; Start 04/28/19 at 02:30 Sodium Chloride 1,000 ml @ 100 mls/hr Q10H IV Last administered on 04/28/19at 19:21; Admin Dose 100 MLS/HR; Start 04/28/19 at 02:30 Multivitamins 10 ml/Thiamine HCl 100 mg/Folic Acid 1 mg/Sodium Chloride 1,011.2 ml @ 125 mls/ hr DAILY@09 IVPB Last administered on 04/30/19at 08:38; Admin Dose 125 MLS/HR; Start 04/28/19 at 09:00; Stop 05/01/19 at 09:00 Lorazepam (Ativan) 2 mg Q1H PRN IV etoh w/d Last administered on 04/30/19at 08:38; Admin Dose 2 MG; Start 04/28/19 at 02:30 Chlordiazepoxide (Librium) 50 mg Q8H PO Last administered on 04/30/19at 08:38; Admin Dose 50 MG; Start 04/29/19 at 17:00 RUI KELLEY MD Apr 30, 2019 11:22
[2019-04-30 14:55] VITALS: BP 119/67; PULSE 61; RESP 20
[2019-04-30] MEDS: ACETAMINOPHEN 325 MG TAB PO PRN (16:01)
[2019-04-30 20:47] VITALS: BP 123/74; PULSE 60; RESP 18
[2019-05-01] VITALS (7 sets, daily range): BP systolic 112–128; BP diastolic 64–78; PULSE 54–78; RESP 16–19
[2019-05-01] MEDS: ACETAMINOPHEN 325 MG TAB PO PRN (00:29)
[2019-05-01] MEDS: PANTOPRAZOLE 40 MG INJ IV SCH (06:26)
--- NOTE | 2019-05-01 15:11 | PN ---
Date/Time of Note Date/Time of Note DATE: 05/01/19 TIME: 15:10 Assessment/Plan VTE Prophylaxis Risk score (from Ns)>0 risk: 2 SCD applied (from Ns): Yes Pharmacological prophylaxis: NA/contraindicated Pharm contraindication: low risk/ambulating Lines/Catheters IV Catheter Type (from Nrsg): Peripheral IV Urinary Cath still in place: No Assessment/Plan Assessment/Plan PLAN -Patient was treated here recently for alcohol withdrawal/DT and left AMA. -No more IV fluids. -Librium off for >24 hrs. -Patient had a head CT at the outside facility which was negative for acute findings -Abstinence from alcohol -Social work consulted for placement. Tentative plan for recuperative care. -Continue PT Dispo: Medically clear for discharge. Patient is still a little unsteady for recuperative care. Continue physical therapy. Result Diagram: 04/29/1952304/29/19523 Subjective 24 Hr Interval Summary Free Text/Dictation Patient walking with physical therapy today. Doing well. Exam/Review of Systems Exam Vitals Vital Signs Date Temp Pulse Resp B/P (MAP) Pulse Ox O2 O2 Flow FiO2 Time Delivery Rate 05/01/19 97.9 67 18 113/68 94 11:09 (83) 04/29/19 21 02:20 04/28/19 Room Air 16:07 Intake and Output 04/30/19 04/30/19 05/01/19 1515:00 23:00 07:00 IntakeIntake Total 650 ml 350 ml 500 ml OutputOutput Total 450 ml 1000 ml 450 ml BalanceBalance 200 ml -650 ml 50 ml Exam Gen: Dirty appearing man awake and alert in bed. Eyes: PERRL, no icterus HEENT: Moist mucous membranes, clear oropharynx Card: Regular rate and rhythm, no murmurs Pulm: Clear to auscultation bilaterally. Abd: Soft, nontender, nondistended. Ext: No cyanosis/clubbing/edema Neuro: No tremor or tongue fasciculations today. Medications Medication Current Medications IV Flush (NS 3 ml) 3 ml PER PROTOCOL IV ; Start 04/28/19 at 02:30 Ondansetron HCl (Zofran Inj) 4 mg Q6H PRN IV NAUSEA/VOMITING; Start 04/28/19 at 02:30 Acetaminophen (Tylenol Tab) 650 mg Q6H PRN PO .PAIN 1-3 OR TEMP Last administered on 05/01/19at 00:29; Admin Dose 650 MG; Start 04/28/19 at 02:30 Albuterol/ Ipratropium (Duoneb) 3 ml Q2H RESP THERAPY PRN HHN SHORTNESS OF BREATH; Start 04/28/19 at 02:30 Lorazepam (Ativan) 2 mg Q1H PRN IV etoh w/d Last administered on 04/30/19at 23:47; Admin Dose 2 MG; Start 04/28/19 at 02:30 Pantoprazole (Protonix Tab) 40 mg DAILY@06 PO ; Start 05/02/19 at 06:00 RUI KELLEY MD May 01, 2019 15:11
[2019-05-01] MEDS: LORAZEPAM 2 MG INJ IV PRN (21:34)
[2019-05-02] MEDS: ACETAMINOPHEN 325 MG TAB PO PRN (02:03)
[2019-05-02] MEDS ORDERED: ONDANSETRON 4 MG TAB PO PRN (02:30)
[2019-05-02] MEDS ORDERED: LORAZEPAM 1 MG TAB PO PRN (02:30)
[2019-05-02 02:32] VITALS: BP 118/74; PULSE 77; RESP 18
[2019-05-02] MEDS ORDERED: PANTOPRAZOLE (EC) 40 MG TAB PO SCH (06:00)
[2019-05-02 08:00] VITALS: BP 112/76; PULSE 61; RESP 18
[2019-05-02 14:00] VITALS: BP 111/65; PULSE 65; RESP 18
--- NOTE | 2019-05-02 14:16 | PN ---
Date/Time of Note Date/Time of Note DATE: 05/02/19 TIME: 14:10 Assessment/Plan VTE Prophylaxis Risk score (from Ns)>0 risk: 2 SCD applied (from Ns): No SCD contraindicated: other (no) Pharmacological prophylaxis: NA/contraindicated Pharm contraindication: low risk/ambulating Lines/Catheters IV Catheter Type (from [facility]): Peripheral IV Urinary Cath still in place: No Assessment/Plan Assessment/Plan PLAN -Patient was treated here recently for alcohol withdrawal/DT and left AMA. -No more IV fluids. -Librium off for >24 hrs. -Patient had a head CT at the outside facility which was negative for acute findings -Abstinence from alcohol -Social work consulted for placement. Tentative plan for recuperative care. -Continue PT Dispo: Medically clear for discharge. Plan for transfer to recuperative care when cleared by physical therapy. Result Diagram: 04/29/1952304/29/19523 Subjective 24 Hr Interval Summary Free Text/Dictation No acute overnight events. Walking with physical therapy today with some assistance. Exam/Review of Systems Exam Vitals Vital Signs Date Temp Pulse Resp B/P (MAP) Pulse Ox O2 O2 Flow FiO2 Time Delivery Rate 05/02/19 98.5 65 18 111/65 96 14:00 (80) 05/01/19 Room Air 20:00 04/29/19 21 02:20 Intake and Output 05/01/19 05/01/19 05/02/19 1515:00 23:00 07:00 IntakeIntake Total 240 ml 400 ml BalanceBalance 240 ml 400 ml Exam Gen: Well appearing man awake and alert. Eyes: PERRL, no icterus HEENT: Moist mucous membranes, clear oropharynx Card: Regular rate and rhythm, no murmurs Pulm: Clear to auscultation bilaterally. Abd: Soft, nontender, nondistended. Ext: No cyanosis/clubbing/edema Neuro: No tremor or tongue fasciculations today. Medications Medication Current Medications IV Flush (NS 3 ml) 3 ml PER PROTOCOL IV ; Start 04/28/19 at 02:30 Acetaminophen (Tylenol Tab) 650 mg Q6H PRN PO .PAIN 1-3 OR TEMP Last administered on 05/02/19at 02:03; Admin Dose 650 MG; Start 04/28/19 at 02:30 Albuterol/ Ipratropium (Duoneb) 3 ml Q2H RESP THERAPY PRN HHN SHORTNESS OF BREATH; Start 04/28/19 at 02:30 Pantoprazole (Protonix Tab) 40 mg DAILY@06 PO Last administered on 05/02/19at 05:56; Admin Dose 40 MG; Start 05/02/19 at 06:00 Lorazepam (Ativan) 2 mg Q1H PRN PO Etoh w/d Last administered on 05/02/19at 12:59; Admin Dose 2 MG; Start 05/02/19 at 02:30 Ondansetron HCl (Zofran Tab) 4 mg Q6H PRN PO NAUSEA AND/OR VOMITING; Start 05/02/19 at 02:30 RUI KELLEY MD May 02, 2019 14:16
[2019-05-02 21:58] VITALS: BP 111/72; PULSE 67; RESP 18
[2019-05-02] MEDS: LORAZEPAM 1 MG TAB PO PRN (22:54)
[2019-05-03] MEDS: LORAZEPAM 1 MG TAB PO PRN (00:58)
[2019-05-03] MEDS: ACETAMINOPHEN 325 MG TAB PO PRN ×3 (01:33→19:39)
[2019-05-03 02:02] VITALS: BP 123/71; PULSE 68; RESP 18
[2019-05-03 08:00] VITALS: BP 133/90; RESP 20
[2019-05-03 12:54] VITALS: PULSE 88
[2019-05-03 14:00] VITALS: BP 115/60; PULSE 74; RESP 18
--- NOTE | 2019-05-03 14:15 | PDOCDIS ---
Discharge Instructions DIAGNOSIS Discharge Diagnosis Acute alcohol withdrawal CONDITION [id number] Patient Condition: [id number] Good HOME CARE INSTRUCTIONS: [id number] Diet Instructions: [id number] Regular FOLLOW UP/APPOINTMENTS Follow-up Plan Abstain from alcohol completely. Your best option may to join a local Alcoholic Anonymous (AA) group. RUI KELLEY MD May 03, 2019 14:15
--- NOTE | 2019-05-03 16:23 | PN ---
Date/Time of Note Date/Time of Note DATE: 05/03/19 TIME: 16:21 Assessment/Plan VTE Prophylaxis Risk score (from Ns)>0 risk: 1 SCD applied (from Ns): No SCD contraindicated: low risk/ambulating Pharmacological prophylaxis: NA/contraindicated Pharm contraindication: low risk/ambulating Lines/Catheters IV [facility]ter Type (from [facility]): Peripheral IV Urinary Cath still in place: No Assessment/Plan Assessment/Plan PLAN -Patient was treated here recently for alcohol withdrawal/DT and left AMA. -No more IV fluids. -Librium off for >24 hrs. -Patient had a head CT at the outside facility which was negative for acute findings -Abstinence from alcohol -Social work consulted for placement. Tentative plan for recuperative care. -Continue PT Dispo: Medically clear for discharge. Plan for transfer to recuperative care when cleared by physical therapy. Result Diagram: 04/29/1952304/29/19523 Subjective 24 Hr Interval Summary Free Text/Dictation Last night patient got ativan for "anxiety" This afternoon apparently he requested Ativan again. On my exam pulse was normal, thought process linear, he said "I'm worried about what will happen when I leave the hospital". I warned him that benzos are not appropriate for generalized anxiety. Exam/Review of Systems Exam Vitals Vital Signs Date Temp Pulse Resp B/P (MAP) Pulse Ox O2 O2 Flow FiO2 Time Delivery Rate 05/03/19 98.7 74 18 115/60 95 14:00 (78) 05/01/19 Room Air 20:00 Intake and Output 05/02/19 05/02/19 05/03/19 1515:00 23:00 07:00 IntakeIntake Total 520 ml 400 ml 240 ml BalanceBalance 520 ml 400 ml 240 ml Exam Gen: Well appearing man awake and alert. Eyes: PERRL, no icterus HEENT: Moist mucous membranes, clear oropharynx Card: Regular rate and rhythm, no murmurs Pulm: Clear to auscultation bilaterally. Abd: Soft, nontender, nondistended. Ext: No cyanosis/clubbing/edema Neuro: No tremor or tongue fasciculations today. Medications Medication Current Medications IV Flush (NS 3 ml) 3 ml PER PROTOCOL IV ; Start 04/28/19 at 02:30 Acetaminophen (Tylenol Tab) 650 mg Q6H PRN PO .PAIN 1-3 OR TEMP Last administered on 05/03/19at 12:23; Admin Dose 650 MG; Start 04/28/19 at 02:30 Albuterol/ Ipratropium (Duoneb) 3 ml Q2H RESP THERAPY PRN HHN SHORTNESS OF BREATH; Start 04/28/19 at 02:30 Ondansetron HCl (Zofran Tab) 4 mg Q6H PRN PO NAUSEA AND/OR VOMITING; Start 05/02/19 at 02:30 RUI KELLEY MD May 03, 2019 16:23
[2019-05-03 19:37] VITALS: BP 118/72; PULSE 73; RESP 17
[2019-05-04 01:48] VITALS: BP 110/66; PULSE 68; RESP 18
[2019-05-04 07:59] VITALS: BP 108/76; PULSE 69; RESP 18
--- NOTE | 2019-05-04 14:35 | PN ---
Date/Time of Note Date/Time of Note DATE: 05/04/19 TIME: 14:34 Assessment/Plan VTE Prophylaxis Risk score (from Ns)>0 risk: 1 SCD applied (from Ns): No SCD contraindicated: low risk/ambulating Pharmacological prophylaxis: NA/contraindicated Pharm contraindication: low risk/ambulating Lines/Catheters IV Catheter Type (from Nrs): Peripheral IV Urinary Cath still in place: No Assessment/Plan Assessment/Plan PLAN -Patient was treated here recently for alcohol withdrawal/DT and left AMA. -No more IV fluids or benzos. -Patient had a head CT at the outside facility which was negative for acute findings -Abstinence from alcohol -Social work consulted for placement. Plan for recuperative care. -Continue PT Dispo: Medically clear for discharge. Plan for transfer to recuperative care when cleared by physical therapy. Subjective 24 Hr Interval Summary Free Text/Dictation No acute overnight events. Patient doing well. Exam/Review of Systems Exam Vitals Vital Signs Date Temp Pulse Resp B/P (MAP) Pulse Ox O2 O2 Flow FiO2 Time Delivery Rate 05/04/19 97.8 69 18 108/76 96 07:59 (87) 05/03/19 Room Air 19:37 Exam Gen: Well appearing man awake and alert. Eyes: PERRL, no icterus HEENT: Moist mucous membranes, clear oropharynx Card: Regular rate and rhythm, no murmurs Pulm: Clear to auscultation bilaterally. Abd: Soft, nontender, nondistended. Ext: No cyanosis/clubbing/edema Medications Medication Current Medications IV Flush (NS 3 ml) 3 ml PER PROTOCOL IV ; Start 04/28/19 at 02:30 Acetaminophen (Tylenol Tab) 650 mg Q6H PRN PO .PAIN 1-3 OR TEMP Last administered on 05/03/19at 19:39; Admin Dose 650 MG; Start 04/28/19 at 02:30 Albuterol/ Ipratropium (Duoneb) 3 ml Q2H RESP THERAPY PRN HHN SHORTNESS OF BREATH; Start 04/28/19 at 02:30 Ondansetron HCl (Zofran Tab) 4 mg Q6H PRN PO NAUSEA AND/OR VOMITING; Start 05/02/19 at 02:30 RUI KELLEY MD May 04, 2019 14:35
[2019-05-04 14:39] VITALS: BP 109/69; PULSE 70; RESP 17
[2019-05-04 20:10] VITALS: BP 111/57; PULSE 70; RESP 18
[2019-05-04] MEDS: ACETAMINOPHEN 325 MG TAB PO PRN (20:21)
[2019-05-05 02:14] VITALS: BP 116/63; PULSE 77; RESP 18
[2019-05-05 08:01] VITALS: BP 109/69; PULSE 68; RESP 18
[2019-05-05] MEDS ORDERED: ARTIFICIAL TEARS 15 ML OPH RIGHT EYE PRN (13:30)
[2019-05-05 14:23] VITALS: BP 119/74; PULSE 82; RESP 18
--- NOTE | 2019-05-05 22:22 | DS ---
DATE OF ADMISSION: 04/28/2019 DATE OF DISCHARGE: 05/05/2019 ADDENDUM: FINAL DIAGNOSES: A 59-year-old homeless male with a history of alcohol abuse, depression and chronic back pain, who was transferred to us from an outside facility for alcohol intoxication and frequent falls. He was admitted and treated with Librium therapy, IV fluid and has done well. 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 SUBJECTIVE: The patient complains of dryness in right eye. OBJECTIVE VITAL SIGNS: Temperature 98, pulse 82, respirations 18, blood pressure 119/74, saturations 98% on room air. GENERAL: He is alert, oriented, calm, in no distress, no shakes. HEENT: Head is normocephalic. The patient does have asthenic with some temporal muscle wasting. Pupils are equal and reactive. There is no conjunctival pallor and no scleral icterus. Posterior pharynx is clear of erythema or exudate. NECK: Supple. CHEST: Clear to auscultation. CARDIOVASCULAR: S1, S2. No murmurs. ABDOMEN: Soft, nontender. EXTREMITIES: Lower extremities are negative for edema. NEUROLOGIC: The patient is ambulant in the room, alert and oriented without gross focal deficit. 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 DISPOSITION: The patient was cleared for transfer to recuperative care at this time. No ocular concerns for infection at that time in view of complaint of dry eye, we will use artificial tears as needed. Dictated By: JAIRON CASTRO MD BA/NTS Conf#: [id number] DID#: [id number] CC: ANDRESSA BALL MD;*EndCC* MTDD
== END 2019-05-05 15:20 | disposition home or self-care (01) | DRG 897 ==
LOC: 6WM 04-28 00:56 → MS3 05-01 17:47
PROVIDERS: ADMIT Internal Medicine; ATTEND Family Medicine
DX: F10.239 Alcohol dependence with withdrawal, unspecified (principal); F10.229 Alcohol dependence with intoxication, unspecified; F32.9 Major depressive disorder, single episode, unspecified; F41.9 Anxiety disorder, unspecified; F17.200 Nicotine dependence, unspecified, uncomplicated; D53.1 Other megaloblastic anemias, not elsewhere classified; M54.9 Dorsalgia, unspecified; G89.29 Other chronic pain; R29.6 Repeated falls; Y90.3 Blood alcohol level of 60-79 mg/100 ml; Z59.0 Homelessness
CPT/HCPCS: 80048; 80053; 83735; 84100; 85025; 97110; 97116; 97162; 97530; C9113; J2060; J3411; J7030